=== PATIENT | female | born 1955 | race African-American/Black ===

== ENCOUNTER 2016-11-14 13:02 | Emergency (ER) | payer MEDICARE, OTHER ==
[~2016-11-14] VITALS: Ht 165.1 cm; Wt 148.8 kg
[2016-11-14 13:02] VITALS: BP 126/66
[~2016-11-14 13:02] MED LIST: ACET500T68 PO; ALBU2.5V14 NEB; ALPR0.5T PO; BACL10TA PO; BISA10SU2 RC; CALC625T12 PO; CIPR500T94 PO; CRAN450T3 PO; CYAN10005 PO; CYAN500T17 PO; DOCU-27 PO; ESCI10TA10 PO; FENT1PAT15 TP; FURO-68 PO; GABA-586 PO; IPRA3AMP IH; LACT1CAP PO; LIDO5JEL8 TP; LORA10TA68 PO; MAGN2400 PO; MULT1TAB52 PO; MUPI1OIN NS; OLOP2.5D EACHEYE; OMEP20CA9 PO; ONDA4TAB12 PO; OXYB5TAB7 PO; OXYC-323 PO; OXYC20TA34 PO; OXYM15MI4 NS; POLY15DR27 OP; POLY17PO5 PO; PRAV20TA2 PO; SIME80TA14 PO; SPIR25TA3 PO; SULF1TAB23 PO; TOLT4CAP PO; [UNRECOGNIZED DRUG - CODE] MM
[2016-11-14] MEDS ORDERED: ACETAMINOPHEN 500 MG TABLET PO ONE (14:30)
[2016-11-14 15:39] LABS: BASO # 0.1 x10^3/uL (0.0-0.2); BASO % 1 % (0-3); EOS % 2 % (0-3); HEMATOCRIT 38.1 % (36.0-47.0); HEMOGLOBIN 12.3 g/dL (12.0-15.5); LYMPH # 1.8 x10^3/uL (1.0-4.8); LYMPH % 29 % (24-48); MEAN CORPUSCULAR HEMOGLOBIN 29 pg (25-35); MEAN CORPUSCULAR HGB CONC 32 g/dL (31-37); MEAN CORPUSCULAR VOLUME 89 fL (79-100); MONO % 8 % (0-9); NEUT % 61 % (31-73); PLATELET COUNT 241 x10^3/uL (140-400); RED BLOOD COUNT 4.27 x10^6/uL (3.50-5.40); WHITE BLOOD COUNT 6.3 x10^3/uL (4.0-11.0)
[2016-11-14 15:48] LABS: INR 1.1 (0.8-1.1); PROTHROMBIN TIME PATIENT 13.2 SEC (11.7-14.0)
--- NOTE | 2016-11-14 16:12 | PHYS DOC ---
Past Medical History Past Medical History: CVA, Depression, GERD, High Cholesterol, Hypertension, Other Additional Past Medical Histor: morbid obesity,left hemiparesis Past Surgical History: Alcohol Use: Occasionally Drug Use: None Adult General Chief Complaint Chief Complaint: VAGINAL BLEEDING HPI HPI Patient is a 61 year old female who presents from residential for evaluation of vaginal bleeding that started in the past day. She has had bleeding all day. She notes minimal lower abdominal cramping. She denies dyspnea, fatigue, chest pain, lightheadedness. She denies vaginal trauma, bloody stools, bloody urine, dysuria, back pain. Review of Systems Review of Systems Constitutional: Denies fever or chills [] Eyes: Denies change in visual acuity, redness, or eye pain [] HENT: Denies nasal congestion or sore throat [] Respiratory: Denies cough or shortness of breath [] Cardiovascular: No additional information not addressed in HPI [] GI: Denies abdominal pain, nausea, vomiting, bloody stools or diarrhea [] : Denies dysuria or hematuria [] Musculoskeletal: Denies back pain or joint pain [] Integument: Denies rash or skin lesions [] Neurologic: Denies headache, focal weakness or sensory changes [] Endocrine: Denies polyuria or polydipsia [] Current Medications Current Medications Current Medications Medications (Trade) Dose Ordered Sig/Gabriel Start Time Stop Time Status Last Admin Dose Admin Acetaminophen (Tylenol) 500 mg 1X ONCE 11/14/16 14:30 11/14/16 14:35 DC 11/14/16 14:41 500 MG Allergies Allergies Allergies Coded Allergies Type Severity Reaction Last Updated Verified coconut oil Allergy Severe shortness of breath 02/11/15 Yes Penicillins Allergy Intermediate 02/11/15 Yes I S O L A T I O N *CONTACT* Allergy Unknown 08/19/15 Yes Physical Exam Physical Exam Constitutional: Well developed, well nourished, no acute distress, non-toxic appearance. [] HENT: Normocephalic, atraumatic, bilateral external ears normal, oropharynx moist, nose normal. [] Eyes: PERRLA, EOMI. [] Neck: Normal range of motion, supple. [] Cardiovascular:Heart rate regular rhythm [] Lungs & Thorax: Bilateral breath sounds clear to auscultation [] Abdomen: Bowel sounds normal, soft, no tenderness. No blood per external rectal exam, no fissure, no hemorrhoid [] Genitourinary: Scant bloody discharge externally seen, scant bloody discharge seen in the vaginal vault with manual exam alone, no obvious active bleeding, no obvious source of bleeding. Patient would not tolerate further exam due to limited mobility of legs and large body habitus Skin: Warm, dry, no erythema, no rash. [] Back: No tenderness, no CVA tenderness. [] Extremities: No tenderness, no edema. [] Neurologic: Alert and oriented X 3, normal motor function, normal sensory function, no focal deficits noted. [] Psychologic: Affect normal, judgement normal, mood normal. [] Current Patient Data Vital Signs Vital Signs Date Time Temp Pulse Resp B/P Pulse Ox O2 Delivery O2 Flow Rate FiO2 11/14/16 13:02 98.0 72 20 126/66 2 Nasal Cannula 98.0 Lab Values Laboratory Tests Test 11/14/16 15:20 White Blood Count 6.3x10^3/uL (4.0-11.0) Red Blood Count 4.27x10^6/uL (3.50-5.40) Hemoglobin 12.3g/dL (12.0-15.5) Hematocrit 38.1% (36.0-47.0) Mean Corpuscular Volume 89fL (79-100) Mean Corpuscular Hemoglobin 29pg (25-35) Mean Corpuscular Hemoglobin Concent 32g/dL (31-37) Red Cell Distribution Width 15.0% (11.5-14.5) H Platelet Count 241x10^3/uL (140-400) Neutrophils (%) (Auto) 61% (31-73) Lymphocytes (%) (Auto) 29% (24-48) Monocytes (%) (Auto) 8% (0-9) Eosinophils (%) (Auto) 2% (0-3) Basophils (%) (Auto) 1% (0-3) Neutrophils # (Auto) 3.8x10^3uL (1.8-7.7) Lymphocytes # (Auto) 1.8x10^3/uL (1.0-4.8) Monocytes # (Auto) 0.5x10^3/uL (0.0-1.1) Eosinophils # (Auto) 0.2x10^3/uL (0.0-0.7) Basophils # (Auto) 0.1x10^3/uL (0.0-0.2) Prothrombin Time 13.2SEC (11.7-14.0) Prothrombin Time INR 1.1 (0.8-1.1) Laboratory Tests 11/14/16 15:20 Course & Med Decision Making Course & Med Decision Making Pertinent Labs and Imaging studies reviewed. (See chart for details) Workup is unremarkable. Have concern for postmenopausal vaginal bleeding and recommend follow-up with primary care as well as gynecology. Return precautions given. She understands and agrees with plan. Dragon Disclaimer Dragon Disclaimer This electronic medical record was generated, in whole or in part, using a voice recognition dictation system. Departure Departure Impression: Primary Impression: Postmenopausal bleeding Disposition: HOME, SELF-CARE Condition: STABLE Referrals: CONOR HANSON MD (PCP) Patient Instructions: Postmenopausal Bleeding, [id number] Additional Instructions: Follow-up with gynecology and your primary care doctor for further workup. Return for any concerns. Bárbara ROSA MD Nov 14, 2016 16:12
== END 2016-11-14 17:06 | disposition home or self-care (01) ==
LOC: ER 13:02
DX: N95.0 Postmenopausal bleeding (principal); K21.9 Gastro-esophageal reflux disease without esophagitis; E78.00 Pure hypercholesterolemia, unspecified; I10 Essential (primary) hypertension; Z86.73 Personal history of transient ischemic attack (TIA), and cerebral infarction without residual deficits; Z68.43 Body mass index [BMI] 50.0-59.9, adult; Z88.0 Allergy status to penicillin; Z91.018 Allergy to other foods; E66.01 Morbid (severe) obesity due to excess calories
CPT/HCPCS: 36415; 85027; 85610; 99284

== ENCOUNTER → 2018-05-10 | Day surgery (SDC) | payer MEDICARE, OTHER ==
[~2018-05-10] VITALS: Ht 167.6 cm; Wt 137.0 kg
[~2018-05-10] MED LIST changes: +ALPR0.25 PO; +AMLO10TA4 PO; +ASPI-482 PO; +ATOR10TA60 PO; +BENZ1LOZ48 MM; +DEXAMETHASONE SOD PHOS 20 MG/5 ML VIAL. ONE; +DIPH25CA58 PO; +DOCU-109 PO; -DOCU-27 PO; -ESCI10TA10 PO; +FAMO20TA5 PO; +GUAI600T47 PO; +HYDR28.423 TP; +HYDROmorphone 2 MG/ML VIAL IV PRN; +IOHEXOL 300 MG/ML 100ML VIAL. ONE; -IPRA3AMP IH; +IPRA3AMP29 IH; +IV RINGERS,LACTATED 1000ML 1,000 ML IV SCH; +LACT1TAB6 PO; +LEXAPRO10 MG PO; +LIDOCAINE 1% PF 2 ML VIAL. ID PRN; +LIDOCAINE 2% JELLY 6ML IN APPLICATOR. ONE; +LIDOCAINE 2% PF Vial for OR 5 ML VIAL. ONE; +MIDAZOLAM HCL/PF 2 MG/2 ML VIAL. ONE; +MINE120C TP; +MORPHINE SULFATE 2 MG/ML VIAL. IV PRN; +NITR100C62 PO; +NYST15PO9 TP; +ONDANSETRON PF 4 MG/2 ML VIAL. ONE; +OXYB5TAB PO; +POLY17PO29 PO; -POLY17PO5 PO; +PROCHLORPERAZINE 10 MG/2 ML VIAL. IV PRN; +PROPOFOL 20 ML IV ONE; +RANI75TA95 PO; +SEVOFLURANE 61 TO 120 MINUTES. IH ONE; -SPIR25TA3 PO; +SPIR25TA5 PO; +TRAM50TA PO; +ceFAZolin 2GM PREMIX 2 GM/50 ML BAG IV ONE; +fentaNYL PF VIAL 100 MCG/2 ML VIAL IV PRN; +fentaNYL PF VIAL 100 MCG/2 ML VIAL ONE
--- NOTE | 2018-05-10 14:32 | PDOC ---
BRIEF OPERATIVE NOTE Pre-Op Diagnosis bladder stone recurrent UTI Post-Op Diagnosis same Procedure Performed cystoscopy, evacuation of bladder stone, right retrograde pyelogram, right ureteroscopy, 6fr x 26 cm JJ stent on string placement Surgeon Neelam Harman Stone Sandblaster None Anesthesia Type: General Blood Loss <5 cc Specimens Obtained Urine for culture, bladder stones Findings As dictated Complications None Operative Note Dictation # [id number] NEELAM HARMAN MD May 10, 2018 14:32
--- NOTE | 2018-05-10 14:35 | DISCH ---
DISCHARGE INSTRUCTIONS Condition on Discharge Condition on Discharge: Stable Activity After Discharge Activity Instructions for Disc: Resume previous activity Diet after Discharge Diet after Discharge: Regular Wound Incision Care Other wound/incision instructi: Please remove the ureteral stent taped to your leg on Wednesday morning. Contacting the DRVel after DC Call your doctor for: Fevers, nausea/vomiting, pain, bleeding, difficulty urinating Follow-Up Follow up with: Dr. Harman in 3 weeks NEELAM HARMAN MD May 10, 2018 14:35
--- NOTE | 2018-05-10 14:51 | OP ---
DATE OF SURGERY: 05/10/2018 PREOPERATIVE DIAGNOSES: 1. Recurrent urinary tract infections. 2. Bladder stones. POSTOPERATIVE DIAGNOSES: 1. Recurrent urinary tract infections. 2. Bladder stones. PROCEDURE PERFORMED: 1. Cystourethroscopy. 2. Evacuation of bladder stones. 3. Right retrograde pyelogram. 4. Right ureteroscopy. 5. Right 6-Central African x 26-cm double-J ureteral stent on string placement. ANESTHESIA: General. COMPLICATIONS: None. BLOOD LOSS: Less than 5 mL. INDICATIONS: The patient is a 63-year-old female with multiple comorbidities including COPD and is oxygen dependent. She has a history of nephrolithiasis and recurrent urinary tract infections. Evaluation including a CT scan, which identified a large left renal stone burden as well as a right renal stone burden and multiple bladder stones. Given her comorbidities, she was unable to undergo a percutaneous nephrolithotomy. We did discuss removing her bladder stones in an attempt to help with her recurrent urinary tract infections. A CT scan also noted some possible distal right ureteral stones. She presents today for above-mentioned procedure. DESCRIPTION OF PROCEDURE: The patient was met in the preoperative holding area where her procedure, risks, benefits, alternatives were reviewed in detail. Informed consent was obtained. She was brought back to the operating room and placed supine on the operating table. Timeout was called, identifying the correct patient, procedure, preoperative antibiotics and right-sided laterality. All members of the surgical team were in agreement. General anesthesia was induced and she was repositioned into dorsal lithotomy and prepped and draped in sterile fashion. A 21-Central African rigid cystoscope was placed atraumatically through urethra. A complete cystoscopy was performed with a 30-degree lens and did not identify any abnormalities within the urethra. There were multiple bladder stones of various sizes at the base of the bladder. There were no mucosal lesions or other debris. Her urine had a very foul odor, so a specimen was obtained for culture. The stones were next evacuated with the cystoscope. The ureteral orifices were orthotopic in position. A cone-tipped catheter was placed in the distal right ureter and a retrograde pyelogram was shot and did not identify any filling defects within the distal ureter; however, there was one in the proximal ureter, so we exchanged the catheter for a sensor tip wire, which was fed up to the renal pelvis under fluoroscopic guidance. The bladder was emptied and alongside the wire, a semirigid ureteroscope was placed all the way up into the renal pelvis. No stones or signs of trauma were noted within the ureter. There was some cloudy appearing debris within the renal pelvis that was evacuated with a syringe. On looking the scope out, there were again no trauma or stones noted within the ureter. The cystoscope was replaced. The bladder was reinspected. No trauma was noted. The bladder was emptied and the scope was removed under direct vision. Using fluoroscopic guidance, a 6-Central African x 26-cm double-J ureteral stent on string was placed. Good proximal positioning was noted in the kidney. Distal curl was noted within the bladder. The strings were then tegadermed to her leg and she was awoken and transferred to the PACU in stable condition with plans to remove her stent on Wednesday morning. NEELAM HARMAN MD DR: CHANELL/allyson JOB#: [id number] / [id number]
[2018-05-10] MEDS: fentaNYL PF VIAL 100 MCG/2 ML VIAL IV PRN ×2 (15:21→15:44)
[2018-05-10 15:32] VITALS: BP 147/74
== END | disposition home or self-care (01) ==
LOC: SURG 11:14
PROVIDERS: ATTEND Urology
DX: N21.0 Calculus in bladder (principal); N39.0 Urinary tract infection, site not specified; J44.9 Chronic obstructive pulmonary disease, unspecified; Z99.81 Dependence on supplemental oxygen; Z88.0 Allergy status to penicillin; Z91.048 Other nonmedicinal substance allergy status
CPT/HCPCS: 52332; 74420; 87086; C1713; C1769; C2617; J0690; J1100; J2001; J2250; J2405; J2704; J3010; J7120; Q9967; A7015

== ENCOUNTER 2020-04-09 17:09 | Inpatient (IN) | payer MEDICARE, OTHER ==
[~2020-04-09] VITALS: Ht 165.1 cm; Wt 115.9 kg
[~2020-04-09 17:09] MED LIST changes: -BISA10SU2 RC; +BISA10SU4 RC; +CEFD300C PO; +CITA10TA8 PO; +CYAN-25 PO; -CYAN10005 PO; -DEXAMETHASONE SOD PHOS 20 MG/5 ML VIAL. ONE; +DEXT237L PO; +ERGO500027 PO; -GABA-586 PO; +GABA300C18 PO; +HYDR-3164 PO; -HYDROmorphone 2 MG/ML VIAL IV PRN; +HYOS0.12 PO/SL; -IOHEXOL 300 MG/ML 100ML VIAL. ONE; -IV RINGERS,LACTATED 1000ML 1,000 ML IV SCH; +LACT1CAP2 PO; -LIDOCAINE 1% PF 2 ML VIAL. ID PRN; -LIDOCAINE 2% JELLY 6ML IN APPLICATOR. ONE; -LIDOCAINE 2% PF Vial for OR 5 ML VIAL. ONE; +LORA0.5T96 PO; -MAGN2400 PO; +MAGN24003 PO; +MAGN400O7 PO; -MIDAZOLAM HCL/PF 2 MG/2 ML VIAL. ONE; -MORPHINE SULFATE 2 MG/ML VIAL. IV PRN; +MULT-445 PO; -MULT1TAB52 PO; -OLOP2.5D EACHEYE; +OLOP2.5D12 EACHEYE; +OMEP20CA16 PO; -OMEP20CA9 PO; -ONDANSETRON PF 4 MG/2 ML VIAL. ONE; +OXYB-36 PO; -OXYB5TAB PO; +OXYB5TAB10 PO; -OXYB5TAB7 PO; -OXYC-323 PO; +OXYC1TAB15 PO; +POLY15DR20 OP; -PROCHLORPERAZINE 10 MG/2 ML VIAL. IV PRN; -PROPOFOL 20 ML IV ONE; +RANI-369 PO; -RANI75TA95 PO; -SEVOFLURANE 61 TO 120 MINUTES. IH ONE; +TAMS0.4C97 PO; -ceFAZolin 2GM PREMIX 2 GM/50 ML BAG IV ONE; -fentaNYL PF VIAL 100 MCG/2 ML VIAL IV PRN; -fentaNYL PF VIAL 100 MCG/2 ML VIAL ONE
[2020-04-09 18:32] LABS: BASO # 0.1 x10^3/uL (0.0-0.2); BASO % 1 % (0-3); EOS # 0.6 x10^3/uL (0.0-0.7); EOS % 7 % (0-3); HEMATOCRIT 31.5 % (36.0-47.0); HEMOGLOBIN 10.2 g/dL (12.0-15.5); LYMPH # 2.5 x10^3/uL (1.0-4.8); LYMPH % 28 % (24-48); MEAN CORPUSCULAR HEMOGLOBIN 28 pg (25-35); MEAN CORPUSCULAR HGB CONC 32 g/dL (31-37); MEAN CORPUSCULAR VOLUME 86 fL (79-100); MONO # 0.7 x10^3/uL (0.0-1.1); MONO % 8 % (0-9); NEUT # 5.1 x10^3/uL (1.8-7.7); NEUT % 57 % (31-73); PLATELET COUNT 252 x10^3/uL (140-400); RED BLOOD COUNT 3.68 x10^6/uL (3.50-5.40); RED CELL DISTRIBUTION WIDTH 17.5 % (11.5-14.5); WHITE BLOOD COUNT 8.9 x10^3/uL (4.0-11.0)
[2020-04-09 18:42] LABS: BASE EXCESS ABG 20 mmol/L (-3-3); HCO3 ABG 50 mmol/L (21-28); PO2 ABG 80 mmHg (65-108); SAT O2 ABG 94 % (92-99)
[2020-04-09 18:44] LABS: FIO2 ABG 3L N.C.; PCO2 ABG 94 mmHg (35-46)
--- NOTE | 2020-04-09 19:29 | RAD ---
PORTABLE CHEST 1V History: Reason: SOA 21 / Spl. Instructions: / History: Comparison: CT January 27, 2020. Chest x-ray January 27, 2020 Findings: Large calcified mediastinal masses, unchanged. No consolidation or pleural effusion. Low lung volumes with mild bibasilar linear atelectasis. No pneumothorax. Unchanged heart size. Impression: 1. Low lung volumes with mild bibasilar linear atelectasis. Electronically signed by: Lul Peña DO (04/09/2020 7:26 PM) [facility]
[2020-04-09 19:35] LABS: BLOOD UREA NITROGEN 12 mg/dL (7-20); BUN/CREATININE RATIO 17 (6-20); CALCIUM 10.1 mg/dL (8.5-10.1); CARBON DIOXIDE 43 mmol/L (21-32); CHLORIDE 101 mmol/L (98-107); CREATININE 0.7 mg/dL (0.6-1.0); GFR 101.6; GLUCOSE 100 mg/dL (70-99); POTASSIUM 4.5 mmol/L (3.5-5.1); SODIUM 143 mmol/L (136-145)
[2020-04-09 19:41] LABS: ALBUMIN 2.4 g/dL (3.4-5.0); ALBUMIN/GLOBULIN RATIO 0.5 (1.0-1.7); ALK PHOS 67 U/L (46-116); ALT (SGPT) 10 U/L (14-59); AST (SGOT) 14 U/L (15-37); MAGNESIUM 1.9 mg/dL (1.8-2.4); TOTAL BILIRUBIN 0.2 mg/dL (0.2-1.0); TOTAL PROTEIN 7.2 g/dL (6.4-8.2)
[2020-04-09] MEDS ORDERED: IPRATRPIUM/ALBUTEROL 0.5/2.5MG 3 ML NEBU. NEB ONE (19:45)
[2020-04-09] MEDS ORDERED: methylPREDNISolone SOD SUCC PF 125 MG/2 ML VIAL. IV ONE (19:45)
[2020-04-09] MEDS ORDERED: ONDANSETRON PF 4 MG/2 ML VIAL. IV PRN (19:45)
[2020-04-09] MEDS ORDERED: IPRATRPIUM/ALBUTEROL 0.5/2.5MG 3 ML NEBU. NEB SCH (20:00)
[2020-04-09 21:15] VITALS: BP 152/79
[2020-04-09] MEDS ORDERED: ALBUTEROL SULFATE 2.5 MG/3 ML NEBU. NEB PRN (21:15)
--- NOTE | 2020-04-09 21:15 | NUR ---
Pt admitted to room 112 from ER. Pt oriented to room and educated on POC. Picture taken of wound on buttock, see chart. Pt brought lift sheet from [facility] and states she will need to take it back with her.
[2020-04-09 22:00] VITALS: BP 117/70
[2020-04-09] MEDS ORDERED: MIRT7.5T8 PO (22:28)
[2020-04-09] MEDS ORDERED: GUAI-108 PO (22:28)
[2020-04-09] MEDS ORDERED: DICL100G54 TP (22:28)
[2020-04-09] MEDS ORDERED: BENZ9.352 MM (22:28)
[2020-04-09] MEDS ORDERED: CETI10TA16 PO (22:28)
[2020-04-09] MEDS ORDERED: FLUT16SP NS (22:28)
[2020-04-09] MEDS ORDERED: HYDR-2868 PO (22:28)
[2020-04-09] MEDS ORDERED: SIMETHICONE 80 MG TAB.CHEW PO PRN (22:45)
[2020-04-09] MEDS ORDERED: NON FORMULARY ITEM (Albuterol Sulfate (Albuterol Sulfate Conc Neb Soln) 1 VIAL) NEB PRN (22:45)
[2020-04-09] MEDS ORDERED: ONDANSETRON ODT 4 MG TAB.RAPDIS. PO PRN (22:45)
[2020-04-09] MEDS ORDERED: FLUTICASONE 50MCG/NASAL SPRAY 16GM BOTTLE. NS PRN (22:45)
[2020-04-09] MEDS ORDERED: HYDROCORTISONE 1% TOPICAL CREAM 30GM TUBE. TP PRN (22:45)
[2020-04-09] MEDS ORDERED: diphenhydrAMINE HCL 25 MG CAPSULE PO PRN (22:45)
[2020-04-09] MEDS ORDERED: BISACODYL 10 MG SUPP.RECT. RC PRN (22:45)
[2020-04-09] MEDS ORDERED: HYDROcodone/APAP 5/325MG 1 TAB TABLET PO PRN (22:45)
[2020-04-09] MEDS ORDERED: MAGNESIUM HYDROXIDE 2,400 MG/30 ML ORAL.SUSP. PO PRN (22:45)
[2020-04-09] MEDS ORDERED: HYOSCYAMINE 0.125 MG TAB.RAPDIS PO PRN (22:45)
[2020-04-09] MEDS ORDERED: MINERAL OIL/PETROLATUM TOPICAL CREAM 113GM JAR. TP PRN (22:45)
[2020-04-09] MEDS ORDERED: ACETAMINOPHEN 500 MG TABLET PO PRN (22:45)
[2020-04-09] MEDS ORDERED: BENZOCAINE 10% ORAL GEL 7GM TUBE. MM PRN (22:45)
[2020-04-09] MEDS ORDERED: POLYVINYL ALCOHOL 1.4% OPHTH SOLUTION 15ML BOTTLE. OU PRN (22:45)
[2020-04-09 23:00] VITALS: BP 114/74
[2020-04-09] MEDS ORDERED: FAMOTIDINE 20 MG TABLET. PO PRN (23:00)
[2020-04-09] MEDS: hydrALAZINE 25 MG TABLET PO SCH (23:00)
[2020-04-09] MEDS: BACLOFEN 10 MG TABLET. PO SCH (23:21)
[2020-04-09] MEDS: TAMSULOSIN 0.4 MG CAP.ER.24H. PO SCH (23:21)
[2020-04-09] MEDS: OXYBUTYNIN CHLORIDE 5 MG TABLET PO SCH (23:22)
[2020-04-09] MEDS: MIRTAZAPINE 7.5 MG TABLET. PO SCH (23:22)
--- NOTE | 2020-04-09 23:25 | PHYS DOC ---
Past Medical History Past Medical History: Bipolar, Bronchitis, CAD, GERD, High Cholesterol, Hypertension Additional Past Medical Histor: morbid obesity,left hemiparesis Past Surgical History: , Other Smoking Status: Never Smoker Alcohol Use: None Drug Use: None General Adult EDM: Chief Complaint: SHORTNESS OF BREATH HPI: HPI: Patient is a 64-year-old morbidly obese female with multiple medical problems including COPD. She lives in a nursing facility. Apparently over the course of the last couple of days she has had increased confusion and lethargy. She was sent here today by her primary care physician over concerns that she may have become hypercapnic. She has done this in the past according to Dr. Ramachandran. She has not had any high fevers chills or sweats. She denies any hemoptysis. [] Review of Systems: Review of Systems: Review of systems is unobtainable secondary to altered mental status Heart Score: Risk Factors: Risk Factors: DM, Current or recent (<one month) smoker, HTN, HLP, family history of CAD, obesity. Risk Scores: Score 0 - 3: 2.5% MACE over next 6 weeks - Discharge Home Score 4 - 6: 20.3% MACE over next 6 weeks - Admit for Clinical Observation Score 7 - 10: 72.7% MACE over next 6 weeks - Early Invasive Strategies Allergies: Allergies: Allergies Coded Allergies Type Severity Reaction Last Updated Verified coconut oil Allergy Severe shortness of breath 02/11/15 Yes Penicillins Allergy Intermediate HAS PREVIOUSLY TOLERATED CTX 11/25/17 Yes I S O L A T I O N *CONTACT* Allergy Unknown 03/20/19 Yes Physical Exam: PE: Constitutional: Morbidly obese female who appears acute on chronically ill. [] HENT: Normocephalic, atraumatic, bilateral external ears normal, oropharynx moist, no oral exudates, nose normal. [] Eyes: PERRLA, EOMI, conjunctiva normal, no discharge. [] Neck: Normal range of motion, no tenderness, supple, no stridor. [] Cardiovascular:Heart rate regular rhythm, no murmur [] Lungs & Thorax: Bilateral breath sounds clear to auscultation however diminished throughout [] Abdomen: Morbidly obese bowel sounds normal, soft, no tenderness, no masses, no pulsatile masses. [] Skin: Warm, dry, no erythema, no rash. [] Back: No tenderness, no CVA tenderness. [] Extremities: 2+ edema equal bilaterally [] Neurologic: Alert but confused to place and time, normal motor function, normal sensory function, no focal deficits noted. [] Psychologic: Unable to assess [] Current Patient Data: Labs: Laboratory Tests Test 04/09/20 17:35 04/09/20 18:20 04/09/20 18:55 O2 Saturation 94 % (92-99) Arterial Blood pH 7.34 (7.35-7.45) L Arterial Blood pCO2 at Patient Temp 94 mmHg (35-46) *H Arterial Blood pO2 at Patient Temp 80 mmHg (65-108) Arterial Blood HCO3 50 mmol/L (21-28) H Arterial Blood Base Excess 20 mmol/L (-3-3) H FiO2 3l n.c. White Blood Count 8.9 x10^3/uL (4.0-11.0) Red Blood Count 3.68 x10^6/uL (3.50-5.40) Hemoglobin 10.2 g/dL (12.0-15.5) L Hematocrit 31.5 % (36.0-47.0) L Mean Corpuscular Volume 86 fL (79-100) Mean Corpuscular Hemoglobin 28 pg (25-35) Mean Corpuscular Hemoglobin Concent 32 g/dL (31-37) Red Cell Distribution Width 17.5 % (11.5-14.5) H Platelet Count 252 x10^3/uL (140-400) Neutrophils (%) (Auto) 57 % (31-73) Lymphocytes (%) (Auto) 28 % (24-48) Monocytes (%) (Auto) 8 % (0-9) Eosinophils (%) (Auto) 7 % (0-3) H Basophils (%) (Auto) 1 % (0-3) Neutrophils # (Auto) 5.1 x10^3/uL (1.8-7.7) Lymphocytes # (Auto) 2.5 x10^3/uL (1.0-4.8) Monocytes # (Auto) 0.7 x10^3/uL (0.0-1.1) Eosinophils # (Auto) 0.6 x10^3/uL (0.0-0.7) Basophils # (Auto) 0.1 x10^3/uL (0.0-0.2) Prothrombin Time 13.0 SEC (11.7-14.0) Prothrombin Time INR 1.0 (0.8-1.1) Activated Partial Thromboplast Time 34 SEC (24-38) Sodium Level 143 mmol/L (136-145) Potassium Level 4.5 mmol/L (3.5-5.1) Chloride Level 101 mmol/L (98-107) Carbon Dioxide Level 43 mmol/L (21-32) H Anion Gap (6-14) Blood Urea Nitrogen 12 mg/dL (7-20) Creatinine 0.7 mg/dL (0.6-1.0) Estimated GFR (Cockcroft-Gault) 101.6 BUN/Creatinine Ratio 17 (6-20) Glucose Level 100 mg/dL (70-99) H Calcium Level 10.1 mg/dL (8.5-10.1) Magnesium Level 1.9 mg/dL (1.8-2.4) Total Bilirubin 0.2 mg/dL (0.2-1.0) Aspartate Amino Transferase (AST) 14 U/L (15-37) L Alanine Aminotransferase (ALT) 10 U/L (14-59) L Alkaline Phosphatase 67 U/L (46-116) Troponin I Quantitative < 0.017 ng/mL (0.000-0.055) CJ-Hjc-P-Type Natriuretic Peptide 20 pg/mL (0-124) Total Protein 7.2 g/dL (6.4-8.2) Albumin 2.4 g/dL (3.4-5.0) L Albumin/Globulin Ratio 0.5 (1.0-1.7) L Laboratory Tests 04/09/20 18:20 Laboratory Tests 04/09/20 18:55 Vital Signs: Vital Signs Date Time Temp Pulse Resp B/P (MAP) Pulse Ox O2 Delivery O2 Flow Rate FiO2 04/09/20 20:54 68 13 174/94 (120) 98 BiPAP/CPAP 04/09/20 20:13 3.0 04/09/20 18:30 98.8 98.8 EKG: EKG: [] Radiology/Procedures: Radiology/Procedures: [] Impression: PROCEDURE: PORTABLE CHEST 1V PORTABLE CHEST 1V History: Reason: SOA 21 / Spl. Instructions: / History: Comparison: CT January 27, 2020. Chest x-ray January 27, 2020 Findings: Large calcified mediastinal masses, unchanged. No consolidation or pleural effusion. Low lung volumes with mild bibasilar linear atelectasis. No pneumothorax. Unchanged heart size. Impression: 1. Low lung volumes with mild bibasilar linear atelectasis. Course & Med Decision Making: Course & Med Decision Making Pertinent Labs and Imaging studies reviewed. (See chart for details) [ED course: Valuation reveals a 64-year-old female who was found to be hypercapnic this is likely the cause of her altered mental status. BiPAP was started with assistance of respiratory therapy. She will be placed in the ICU under the care of Dr. Erickson. CRITICAL CARE: Time spent was 35 minutes. This includes medical management, evaluation, reevaluation, discussion with consultants and family. Critical Care does NOT include time spent on separately billed procedures. Dragon Disclaimer: Dragon Disclaimer: This electronic medical record was generated, in whole or in part, using a voice recognition dictation system. Departure Departure Impression: Primary Impression: Acute hypercapnic respiratory failure Disposition: ADMITTED INPATIENT Admitting Physician: Madi. Saravia Condition: GUARDED Referrals: CONOR RAMACHANDRAN MD (PCP) Justicifation of Admission Dx: Justifications for Admission: Justification of Admission Dx: Yes Comments: Acute hypercapnic respiratory failure NEHEMIAH HERNÁNDEZ DO Apr 09, 2020 23:25
[2020-04-10] VITALS (22 sets, daily range): BP systolic 84–170; BP diastolic 47–106
[2020-04-10] MEDS ORDERED: ALBUTEROL SULFATE 2.5 MG/3 ML NEBU. NEB PRN
[2020-04-10 02:08] LABS: BASO # 0.1 x10^3/uL (0.0-0.2); BASO % 1 % (0-3); EOS # 0.4 x10^3/uL (0.0-0.7); EOS % 6 % (0-3); HEMATOCRIT 28.4 % (36.0-47.0); HEMOGLOBIN 9.5 g/dL (12.0-15.5); LYMPH # 2.5 x10^3/uL (1.0-4.8); LYMPH % 30 % (24-48); MEAN CORPUSCULAR HEMOGLOBIN 28 pg (25-35); MEAN CORPUSCULAR HGB CONC 33 g/dL (31-37); MEAN CORPUSCULAR VOLUME 85 fL (79-100); MONO # 0.5 x10^3/uL (0.0-1.1); MONO % 6 % (0-9); NEUT # 4.7 x10^3/uL (1.8-7.7); NEUT % 57 % (31-73); PLATELET COUNT 233 x10^3/uL (140-400); RED BLOOD COUNT 3.33 x10^6/uL (3.50-5.40); RED CELL DISTRIBUTION WIDTH 17.3 % (11.5-14.5); WHITE BLOOD COUNT 8.2 x10^3/uL (4.0-11.0)
[2020-04-10 02:43] LABS: ALBUMIN 2.2 g/dL (3.4-5.0); ALBUMIN/GLOBULIN RATIO 0.5 (1.0-1.7); CALCIUM 9.6 mg/dL (8.5-10.1); CREATININE 0.9 mg/dL (0.6-1.0); POTASSIUM 3.6 mmol/L (3.5-5.1); TOTAL BILIRUBIN 0.2 mg/dL (0.2-1.0); TOTAL PROTEIN 6.6 g/dL (6.4-8.2)
[2020-04-10] MEDS ORDERED: C.DIFF MED SCREEN BY RX. MC ONE (09:00)
[2020-04-10] MEDS: LORazepam 0.5 MG TABLET PO SCH (09:00)
[2020-04-10] MEDS: guaiFENesin DM 600/30MG 1 TAB TAB.ER.12H PO SCH (09:10)
[2020-04-10] MEDS: DOCUSATE SODIUM 100 MG CAPSULE. PO SCH (09:11)
[2020-04-10] MEDS: TAMSULOSIN 0.4 MG CAP.ER.24H. PO SCH ×2 (09:11→21:17)
[2020-04-10] MEDS: MULTIVITAMIN with MINERAL TABLET. PO SCH (09:12)
[2020-04-10] MEDS: CYANOCOBALAMIN (VITAMIN B-12) 1,000 MCG TABLET. PO SCH (09:12)
[2020-04-10] MEDS: OXYBUTYNIN CHLORIDE 5 MG TABLET PO SCH ×3 (09:12→21:17)
[2020-04-10] MEDS: GABAPENTIN 300 MG CAPSULE. PO SCH ×3 (09:12→21:17)
[2020-04-10] MEDS: CITALOPRAM 20 MG TABLET. PO SCH (09:13)
[2020-04-10] MEDS: CETIRIZINE HCL 10 MG TABLET. PO SCH (09:13)
[2020-04-10] MEDS: BACLOFEN 10 MG TABLET. PO SCH ×3 (09:14→21:17)
[2020-04-10] MEDS: POLYETHYLENE GLYCOL 3350 17 GM PACKET. PO SCH (09:14)
[2020-04-10] MEDS: ASPIRIN ENTERIC COATED 81 MG TABLET.DR. PO SCH (09:14)
[2020-04-10] MEDS: hydrALAZINE 25 MG TABLET PO SCH ×3 (09:51→21:17)
[2020-04-10] MEDS: DICLOFENAC SODIUM 1% TOPICAL GEL 100GM TUBE. TP PRN (10:13)
--- NOTE | 2020-04-10 10:44 | CONS ---
DATE OF CONSULTATION: PULMONARY CONSULTATION ATTENDING PHYSICIAN: Dr. Ramachandran. REASON FOR CONSULTATION: Dyspnea, hypercapnia. HISTORY OF PRESENT ILLNESS: The patient is a 64-year-old morbidly obese patient with a BMI of 41. She has COPD, likely from secondhand tobacco exposure. She lives in a nursing facility. She was brought into the hospital with some confusion and lethargy. The patient had some shortness of breath. She had a low-grade fever over there, but she has been afebrile since our hospital. Her chest x-ray was reviewed. She has a large calcified mediastinal mass, which is unchanged. She has no definite consolidation seen. She has mild bibasilar atelectasis. I have been asked to see her for further evaluation. She had abnormal ABGs with a pH of 7.34, pCO2 of 94 and pO2 of 80 on 3 liters nasal cannula. She declined to use the BiPAP last night. She is awake, alert and following commands. She is on still 3 liters of oxygen. I reviewed the patient's CT chest from January of this year. She had a large calcified granuloma in the mediastinum. She had bilateral infiltrates at that time. PAST MEDICAL HISTORY: Significant for COPD from secondhand tobacco exposure, suspected VALERIANO and OHS. History of morbid obesity, bipolar disorder, CAD, GERD, dyslipidemia, hypertension and left hemiparesis. PAST SURGICAL HISTORY: . SOCIAL HISTORY: Denies any significant tobacco use. ALLERGIES: PENICILLIN AND COCONUT OIL. MEDICATIONS: Reviewed as listed in the MRAD including lorazepam. REVIEW OF SYSTEMS: Twelve-point system obtained. Pertinent positives discussed in my history of present illness, otherwise noncontributory. All systems that were negative were reviewed as well. FAMILY HISTORY: Noncontributory to lungs. PHYSICAL EXAMINATION: GENERAL: She is awake, alert and following commands. VITAL SIGNS: Blood pressure stable, pulse ox 98% on 3 liters. HEENT: Sclerae nonicteric. NECK: Supple. LUNGS: With diminished breath sounds. CARDIOVASCULAR: With a regular rate. ABDOMEN: Soft, obese. EXTREMITIES: With no pitting edema. LABORATORY DATA: Reviewed. ABG discussed in my history of present illness. BUN 13, creatinine 0.9. INR 1.0. White cell count 8.2, hemoglobin 9.5 and platelets are 233. IMPRESSION: 1. Ocfey-vj-tfgsdea hypercapnic respiratory failure secondary to chronic obstructive pulmonary disease exacerbation and also contributed by benzodiazepines/ Narcotics. 2. Suspected obstructive sleep apnea/obesity hypoventilation syndrome. 3. Chronic hypercapnia. 4. Chronic hypoxia. The patient has been on oxygen at 3 liters on a 24-hour basis. We need to avoid hyperoxia. 5. Previous abnormal CT chest and x-rays with large calcified mediastinal granuloma. 6. Tracheobronchitis. RECOMMENDATIONS: 1. We will reduce the oxygen down to 1.5 liters, keep saturation 92-94%. 2. Follow ABGs. 3. BiPAP at bedtime if she agrees to use it. 4. Consider sleep study as an outpatient, although she has marginal compliance with BiPAP. 5. Weight loss is advised. 6. Minimize the use of benzodiazepines./narcotics 7. P.r.n. bronchodilators. 8. Discussed with RN and we will follow along with you. Critical care time 35 minutes including review of the labs, previous imaging studies and discussion with RN and RT and decision making. ISHAN GAYTAN MD DR: PATRICE/allyson JOB#: [id number] / [id number] NICOLAS
--- NOTE | 2020-04-10 12:13 | HP ---
ADMIT DATE: 04/09/2020 HISTORY OF PRESENT ILLNESS: The patient is a 64-year-old female patient, a resident at [facility], who was noted by the nursing staff to be increasingly confused and lethargic. We did her lab work showed that her bicarbonate is elevated at 45 and were concerned that she might be retaining carbon dioxide that she has been admitted before with acute hypercapnic respiratory failure and therefore, the patient was sent to the Emergency Room where she was evaluated and eventually admitted with acute hypoxic hypercapnic respiratory failure. The patient denied any fever, chills, sweats. Did complain of cough and shortness of breath, but denied any phlegm or hemoptysis. While in the Emergency Room, she has had lab work, which showed a white cell count was normal. Her blood gases showed a pH of 7.34, pCO2 of 94, pO2 of 80, bicarbonate of 50 and her oxygen saturation was 94% on 3 liters of oxygen by nasal cannula. Her chest x-ray showed low lung volumes with mild bibasilar linear atelectasis. The patient was admitted to the ICU and was put on BiPAP machine. All her medications were continued. She did receive one dose of Solu-Medrol at 125 mg IV once in the Emergency Room, she is afebrile, hemodynamically stable. Chest x-ray was unremarkable and therefore, no antibiotics were initiated. Her carbon dioxide retention is likely related to her morbid obesity, obstructive sleep apnea. She is also on multiple medications that are sedating including hydrocodone, diphenhydramine as well as lorazepam. PAST MEDICAL HISTORY: Significant for right middle cerebral artery territory infarct, left side hemiplegia, neurogenic bladder requiring suprapubic catheter, has chronic obstructive pulmonary disease for which she is on continuous oxygen at 2.5 liters by nasal cannula. She is known to have hypertension, hyperlipidemia, depression, morbid obesity, and obstructive sleep apnea. She has an overactive bladder, severe pain in her left knee joint, gastroesophageal reflux disease, recurrent urinary tract infection. She is also known to have bladder stones for which she underwent cystoscopy and stone retrieval. PAST SURGICAL HISTORY: Significant for cholecystostomy tube placement for acute cholecystitis. She also underwent cystourethroscopy and evacuation of bladder stones, right retrograde pyelography, right ureteroscopy and right ureteral stent placement. FAMILY HISTORY: Unremarkable. SOCIAL HISTORY: She is a resident at [facility]. She does not smoke, drink alcohol or use recreational drugs. She has a son and a daughter. ALLERGIES: SHE IS ALLERGIC TO PENICILLIN AND COCONUT OIL. MEDICATIONS: She is currently on following medications: She is on diphenhydramine 50 mg every 4 hours as needed, cetirizine 10 mg once a day, hyoscyamine sulfate 0.125 mg p.o. sublingually every 4 hours for overactive bladder spasm, albuterol sulfate 2.5 mg by nebulizer every 6 hours, tamsulosin for Flomax 0.4 mg twice a day, baclofen 10 mg 3 times a day, atorvastatin calcium 10 mg at bedtime, hydralazine 25 mg 3 times a day, aspirin 81 mg once a day, diclofenac sodium 100 grams gel 2 grams apply topically every 4 hours for her shoulders as needed for pain. She is on hydrocodone/APAP 5/325 one tablet every 4 hours, Tylenol 500 mg every 6 hours. She is on gabapentin 300 mg 3 times a day, citalopram hydrobromide for Celexa 20 mg once a day, mirtazapine 7.5 mg daily at bedtime, lorazepam 0.5 mg once a day. She is on guaifenesin/dextromethorphan for Mucinex DM 600 mg/30 mg 1 tablet once a day, Flonase 2 sprays to each nostril once a day, benzocaine oral pain relief as needed. She is on polyvinyl alcohol 1 drop to both eyes 3 times a day, simethicone 160 mg every 6 hours, bisacodyl 10 mg suppository rectally daily p.r.n. for constipation, Colace 100 mg once a day, milk of magnesia 30 mL p.o. daily p.r.n. for constipation. She is on polyethylene glycol 17 grams daily, and ondansetron 4 mg every 4 hours, famotidine 20 mg once a day, hydrocortisone/aloe vera apply 4 times a day as needed for skin rash. She is also on Eucerin cream for dry skin as needed 3 times a day, oxybutynin chloride 5 mg 3 times a day. She is on cyanocobalamin 500 mcg tablet once a day and ergocalciferol for vitamin D2 50,000 units once a week, multivitamin 1 tablet once a day. PHYSICAL EXAMINATION: GENERAL: On arrival to the Emergency Room, the patient was lethargic, somewhat pale, but no jaundice, cyanosis or thyromegaly. No jugular venous distention. No limb edema. VITAL SIGNS: Her heart rate was 68, blood pressure was 140/64, temperature was 98.8, respiratory rate was 14 and oxygen saturation was 97% on 3 liters of oxygen. HEAD, EYES, EARS, NOSE AND THROAT: Normocephalic, atraumatic. NECK: Supple. HEART: Normal first and second heart sounds. No gallop, rub or murmur. CHEST: Clear to auscultation. No crepitation or rhonchi. ABDOMEN: Distended, soft, nontender. No guarding or rigidity. No organomegaly. All hernial orifice intact. Bowel sounds normal. NEUROLOGIC: The patient is alert, but confused to place and time. There is a left-sided hemiplegia. LABORATORY DATA: Her lab work on arrival showed a white cell count of 8900, hemoglobin 10, hematocrit 31, MCV 86, and platelet count 252,000. Her chemistry showed a serum sodium 143, potassium 4.5, chloride 101, bicarbonate 43, anion gap of 0, BUN 12, creatinine 0.7, estimated GFR was 101, glucose was 100, calcium was 10.1, magnesium was 1.9. Total bilirubin, AST, ALT, alkaline phosphatase were normal. Total protein 7.2, albumin 2.4. Her prothrombin time, INR and aPTT are all normal. Her blood gases showed a pH of 7.34, pCO2 of 94, pO2 of 80, bicarbonate 50 and her oxygen saturation was 94% on 3 liters oxygen by nasal cannula. Her chest x-ray showed that large calcified mediastinal mass is unchanged. There is no consolidation, pleural effusion, low lung volumes and mild bibasilar linear atelectasis, no pneumothorax, unchanged heart size. Therefore, the patient was admitted with acute hypoxic hypercapnic respiratory failure. She was started on BiPAP. She has a normal white cell count. She is afebrile and ____ for hypercapnia is likely part of her morbid obesity, obstructive sleep apnea. She is also on multiple sedating medications including lorazepam. She is on gabapentin, diphenhydramine as well as hydrocodone. She probably hold some of these medications for now and we have already consulted the etcher enameling to assist with her management. CONOR HANSON MD DR: KASI/allyson JOB#: [id number] / [id number]
--- NOTE | 2020-04-10 12:47 | PN ---
DATE: 04/10/2020 SUBJECTIVE: The patient is resting, slightly propped up in bed, in no apparent respiratory distress. She is definitely more awake, alert and responding appropriately. On questioning her, she continued to complain of shortness of breath and cough, is mostly dry. She denied any chest pain, denied any chills, rigors, or fever. Denied any phlegm or hemoptysis. PHYSICAL EXAMINATION: GENERAL: When I examined her this morning, she looked well, somewhat pale, but no jaundice, cyanosis or thyromegaly. No jugular venous distention or limb edema. VITAL SIGNS: Her heart rate was 68, blood pressure was 131/106, temperature was 98.5, respiratory rate was 18 and oxygen saturation was 97% on 1.5 liters of oxygen by nasal cannula. HEAD, EYES, EARS, NOSE AND THROAT: Showed she is normocephalic and atraumatic. NECK: Supple. HEART: Normal first and second heart sounds. No gallop, rub or murmur. CHEST: Shows central trachea, equal bilateral expansion, air entry expands. I could not really appreciate any crepitation or rhonchi. ABDOMEN: Distended, soft, nontender. NEUROLOGIC: She is awake, alert, responding appropriately. All cranial nerves intact. She has obviously dense left-sided hemiplegia. She is mostly bedbound, chair bound. She has neurogenic bladder requiring suprapubic catheter. LABORATORY DATA: Her lab work this morning showed a white cell count was 8200, hemoglobin 9.5, hematocrit 28, MCV 85 and platelet count 233,000. Her chemistry this morning showed a serum sodium of 45, potassium 3.6, chloride 102, bicarbonate 43, anion gap of 0, BUN 13, creatinine 0.9, estimated GFR was 76 mL per minute. Her glucose was 130, calcium was 9.6. Total bilirubin, AST, ALT, alkaline phosphatase were normal. Her total protein was 6.6, albumin was 2.2. She has 3 sets of cardiac enzymes, all negative and showed troponin to be less than 0.017. Beta natriuretic peptide was only 20. ASSESSMENT: In summary, this is a 64-year-old female patient who was admitted with acute hypercapnic respiratory failure, likely multifactorial including: A. Morbid obesity, obstructive sleep apnea. B. Multiple sedatives including hydrocodone, lorazepam, and Neurontin. She is also on diphenhydramine and Mucinex with dextromethorphan. She has multiple other medical problems including: A. Hypertension. B. Hyperlipidemia. C. Right middle cerebral artery territory infarct with left-sided hemiplegia, neurogenic bladder requiring suprapubic catheter overactive bladder, nephrolithiasis, and urinary bladder calculi. I would probably hold some of her pain medications and we will also arrange for her to have a sleep study but obviously to be done as an outpatient. CONOR HANSON MD DR: KASI/allyson JOB#: [id number] / [id number]
[2020-04-10 13:17] LABS: BASE EXCESS ABG 16 mmol/L (-3-3); HCO3 ABG 43 mmol/L (21-28); PO2 ABG 77 mmHg (65-108); SAT O2 ABG 95 % (92-99)
[2020-04-10 13:19] LABS: PCO2 ABG 64 mmHg (35-46)
--- NOTE | 2020-04-10 15:08 | NUR ---
SS following for discharge planning. SS reviewed pt chart and discussed with pt RN. Pt is LTC resident from [place], ; fax [phone]. Pt is currently requiring oxygen. COVID19 pending. SS will continue to follow for discharge planning.
[2020-04-10] MEDS ORDERED: ATORVASTATIN CALCIUM 10 MG TABLET. PO SCH (21:00)
[2020-04-10] MEDS: MIRTAZAPINE 7.5 MG TABLET. PO SCH (21:17)
[2020-04-11] VITALS (14 sets, daily range): BP systolic 84–140; BP diastolic 50–104
[2020-04-11 08:16] LABS: BASO # 0.1 x10^3/uL (0.0-0.2); BASO % 1 % (0-3); EOS # 0.4 x10^3/uL (0.0-0.7); EOS % 5 % (0-3); HEMATOCRIT 32.1 % (36.0-47.0); HEMOGLOBIN 10.5 g/dL (12.0-15.5); LYMPH # 3.2 x10^3/uL (1.0-4.8); LYMPH % 37 % (24-48); MEAN CORPUSCULAR HEMOGLOBIN 28 pg (25-35); MEAN CORPUSCULAR HGB CONC 33 g/dL (31-37); MEAN CORPUSCULAR VOLUME 85 fL (79-100); MONO # 0.6 x10^3/uL (0.0-1.1); MONO % 7 % (0-9); NEUT # 4.3 x10^3/uL (1.8-7.7); NEUT % 50 % (31-73); PLATELET COUNT 267 x10^3/uL (140-400); RED BLOOD COUNT 3.78 x10^6/uL (3.50-5.40); RED CELL DISTRIBUTION WIDTH 17.9 % (11.5-14.5); WHITE BLOOD COUNT 8.6 x10^3/uL (4.0-11.0)
[2020-04-11 08:29] LABS: BLOOD UREA NITROGEN 16 mg/dL (7-20); BUN/CREATININE RATIO 20 (6-20); CALCIUM 9.9 mg/dL (8.5-10.1); CARBON DIOXIDE 42 mmol/L (21-32); CHLORIDE 103 mmol/L (98-107); CREATININE 0.8 mg/dL (0.6-1.0); GFR 87.1; GLUCOSE 92 mg/dL (70-99); POTASSIUM 3.7 mmol/L (3.5-5.1); SODIUM 142 mmol/L (136-145)
[2020-04-11 08:35] LABS: ALBUMIN 2.4 g/dL (3.4-5.0); ALBUMIN/GLOBULIN RATIO 0.5 (1.0-1.7); ALK PHOS 64 U/L (46-116); ALT (SGPT) 10 U/L (14-59); AST (SGOT) 14 U/L (15-37); TOTAL BILIRUBIN 0.3 mg/dL (0.2-1.0); TOTAL PROTEIN 7.1 g/dL (6.4-8.2)
[2020-04-11] MEDS: LORazepam 0.5 MG TABLET PO SCH (08:40)
[2020-04-11] MEDS: DOCUSATE SODIUM 100 MG CAPSULE. PO SCH (08:40)
[2020-04-11] MEDS: CITALOPRAM 20 MG TABLET. PO SCH (08:40)
[2020-04-11] MEDS: hydrALAZINE 25 MG TABLET PO SCH (08:40)
[2020-04-11] MEDS: ASPIRIN ENTERIC COATED 81 MG TABLET.DR. PO SCH (08:40)
[2020-04-11] MEDS: TAMSULOSIN 0.4 MG CAP.ER.24H. PO SCH (08:41)
[2020-04-11] MEDS: GABAPENTIN 300 MG CAPSULE. PO SCH (08:41)
[2020-04-11] MEDS: POLYETHYLENE GLYCOL 3350 17 GM PACKET. PO SCH (08:41)
[2020-04-11] MEDS: OXYBUTYNIN CHLORIDE 5 MG TABLET PO SCH (08:41)
[2020-04-11] MEDS: guaiFENesin DM 600/30MG 1 TAB TAB.ER.12H PO SCH (08:41)
[2020-04-11] MEDS: MULTIVITAMIN with MINERAL TABLET. PO SCH (08:41)
[2020-04-11] MEDS: BACLOFEN 10 MG TABLET. PO SCH (08:41)
[2020-04-11] MEDS: CYANOCOBALAMIN (VITAMIN B-12) 1,000 MCG TABLET. PO SCH (08:41)
[2020-04-11] MEDS: CETIRIZINE HCL 10 MG TABLET. PO SCH (08:42)
--- NOTE | 2020-04-11 09:54 | NUR ---
SS following up with discharge planning. SS reviewed pt chart and discussed with pt RN. Pt is LTC resident from [place], ; fax [phone]. Pt is currently on nasal canula oxygen. COVID19 negative. SS phoned and faxed clinical to [place]. Possible discharge back to [place] today. SS will continue to follow for discharge planning.
--- NOTE | 2020-04-11 10:00 | EKG ---
[facility] [address] [place] [address] Test Date: 2020-04-09 Test Time: 17:52:13 Pat Name: PASHA SIMMONS Department: Room: Gender: F Greige Mender: : 1955 Requested By: FAZAL GRACE Order Number: [id number] Reading MD: Measurements Intervals [place] Rate: 72 P: 48 MA: 132 QRS: 8 QRSD: 100 T: 62 QT: 360 QTc: 396 Interpretive Statements SINUS RHYTHM NORMAL ECG RI6.01 No previous ECG available for comparison
--- NOTE | 2020-04-11 10:06 | PDOC ---
PULMONARY PROGRESS NOTES Subjective Pt. wore and tolerated BIPAP overnight, now on room air no overnight concerns, no SOB, no increase cough Vitals Vital Signs Date Time Temp Pulse Resp B/P (MAP) Pulse Ox O2 Delivery O2 Flow Rate FiO2 04/11/20 09:00 103 29 140/104 (116) 93 Room Air 04/11/20 08:00 98.1 1.5 98.1 ROS: No Nausea, No Chest Pain, No Abdominal Pain, No Increase Cough General: Alert, No acute distress HEENT: Other Lungs: Clear Cardiovascular: S1, S2 Abdomen: Soft, Non-tender Extremities: Other Labs Laboratory Tests Test 04/09/20 17:35 04/09/20 18:20 04/09/20 18:55 04/09/20 20:15 O2 Saturation 94 % (92-99) Arterial Blood pH 7.34 (7.35-7.45) Arterial Blood pCO2 at Patient Temp 94 mmHg (35-46) Arterial Blood pO2 at Patient Temp 80 mmHg (65-108) Arterial Blood HCO3 50 mmol/L (21-28) Arterial Blood Base Excess 20 mmol/L (-3-3) FiO2 3l n.c. White Blood Count 8.9 x10^3/uL (4.0-11.0) Red Blood Count 3.68 x10^6/uL (3.50-5.40) Hemoglobin 10.2 g/dL (12.0-15.5) Hematocrit 31.5 % (36.0-47.0) Mean Corpuscular Volume 86 fL (79-100) Mean Corpuscular Hemoglobin 28 pg (25-35) Mean Corpuscular Hemoglobin Concent 32 g/dL (31-37) Red Cell Distribution Width 17.5 % (11.5-14.5) Platelet Count 252 x10^3/uL (140-400) Neutrophils (%) (Auto) 57 % (31-73) Lymphocytes (%) (Auto) 28 % (24-48) Monocytes (%) (Auto) 8 % (0-9) Eosinophils (%) (Auto) 7 % (0-3) Basophils (%) (Auto) 1 % (0-3) Neutrophils # (Auto) 5.1 x10^3/uL (1.8-7.7) Lymphocytes # (Auto) 2.5 x10^3/uL (1.0-4.8) Monocytes # (Auto) 0.7 x10^3/uL (0.0-1.1) Eosinophils # (Auto) 0.6 x10^3/uL (0.0-0.7) Basophils # (Auto) 0.1 x10^3/uL (0.0-0.2) Prothrombin Time 13.0 SEC (11.7-14.0) Prothromb Time International Ratio 1.0 (0.8-1.1) Activated Partial Thromboplast Time 34 SEC (24-38) Sodium Level 143 mmol/L (136-145) Potassium Level 4.5 mmol/L (3.5-5.1) Chloride Level 101 mmol/L (98-107) Carbon Dioxide Level 43 mmol/L (21-32) Anion Gap (6-14) Blood Urea Nitrogen 12 mg/dL (7-20) Creatinine 0.7 mg/dL (0.6-1.0) Estimated GFR (Cockcroft-Gault) 101.6 BUN/Creatinine Ratio 17 (6-20) Glucose Level 100 mg/dL (70-99) Calcium Level 10.1 mg/dL (8.5-10.1) Magnesium Level 1.9 mg/dL (1.8-2.4) Total Bilirubin 0.2 mg/dL (0.2-1.0) Aspartate Amino Transf (AST/SGOT) 14 U/L (15-37) Alanine Aminotransferase (ALT/SGPT) 10 U/L (14-59) Alkaline Phosphatase 67 U/L (46-116) Troponin I Quantitative < 0.017 ng/mL (0.000-0.055) BQ-Pwb-K-Type Natriuretic Peptide 20 pg/mL (0-124) Total Protein 7.2 g/dL (6.4-8.2) Albumin 2.4 g/dL (3.4-5.0) Albumin/Globulin Ratio 0.5 (1.0-1.7) Coronavirus (PCR) Not detected (Not Detected) Test 04/09/20 22:50 04/10/20 01:55 04/10/20 13:10 04/11/20 08:00 Troponin I Quantitative < 0.017 ng/mL (0.000-0.055) < 0.017 ng/mL (0.000-0.055) White Blood Count 8.2 x10^3/uL (4.0-11.0) 8.6 x10^3/uL (4.0-11.0) Red Blood Count 3.33 x10^6/uL (3.50-5.40) 3.78 x10^6/uL (3.50-5.40) Hemoglobin 9.5 g/dL (12.0-15.5) 10.5 g/dL (12.0-15.5) Hematocrit 28.4 % (36.0-47.0) 32.1 % (36.0-47.0) Mean Corpuscular Volume 85 fL (79-100) 85 fL (79-100) Mean Corpuscular Hemoglobin 28 pg (25-35) 28 pg (25-35) Mean Corpuscular Hemoglobin Concent 33 g/dL (31-37) 33 g/dL (31-37) Red Cell Distribution Width 17.3 % (11.5-14.5) 17.9 % (11.5-14.5) Platelet Count 233 x10^3/uL (140-400) 267 x10^3/uL (140-400) Neutrophils (%) (Auto) 57 % (31-73) 50 % (31-73) Lymphocytes (%) (Auto) 30 % (24-48) 37 % (24-48) Monocytes (%) (Auto) 6 % (0-9) 7 % (0-9) Eosinophils (%) (Auto) 6 % (0-3) 5 % (0-3) Basophils (%) (Auto) 1 % (0-3) 1 % (0-3) Neutrophils # (Auto) 4.7 x10^3/uL (1.8-7.7) 4.3 x10^3/uL (1.8-7.7) Lymphocytes # (Auto) 2.5 x10^3/uL (1.0-4.8) 3.2 x10^3/uL (1.0-4.8) Monocytes # (Auto) 0.5 x10^3/uL (0.0-1.1) 0.6 x10^3/uL (0.0-1.1) Eosinophils # (Auto) 0.4 x10^3/uL (0.0-0.7) 0.4 x10^3/uL (0.0-0.7) Basophils # (Auto) 0.1 x10^3/uL (0.0-0.2) 0.1 x10^3/uL (0.0-0.2) Sodium Level 145 mmol/L (136-145) 142 mmol/L (136-145) Potassium Level 3.6 mmol/L (3.5-5.1) 3.7 mmol/L (3.5-5.1) Chloride Level 102 mmol/L (98-107) 103 mmol/L (98-107) Carbon Dioxide Level 43 mmol/L (21-32) 42 mmol/L (21-32) Anion Gap 0 (6-14) (6-14) Blood Urea Nitrogen 13 mg/dL (7-20) 16 mg/dL (7-20) Creatinine 0.9 mg/dL (0.6-1.0) 0.8 mg/dL (0.6-1.0) Estimated GFR (Cockcroft-Gault) 76.0 87.1 BUN/Creatinine Ratio 14 (6-20) 20 (6-20) Glucose Level 130 mg/dL (70-99) 92 mg/dL (70-99) Calcium Level 9.6 mg/dL (8.5-10.1) 9.9 mg/dL (8.5-10.1) Total Bilirubin 0.2 mg/dL (0.2-1.0) 0.3 mg/dL (0.2-1.0) Aspartate Amino Transf (AST/SGOT) 12 U/L (15-37) 14 U/L (15-37) Alanine Aminotransferase (ALT/SGPT) 11 U/L (14-59) 10 U/L (14-59) Alkaline Phosphatase 63 U/L (46-116) 64 U/L (46-116) Total Protein 6.6 g/dL (6.4-8.2) 7.1 g/dL (6.4-8.2) Albumin 2.2 g/dL (3.4-5.0) 2.4 g/dL (3.4-5.0) Albumin/Globulin Ratio 0.5 (1.0-1.7) 0.5 (1.0-1.7) O2 Saturation 95 % (92-99) Arterial Blood pH 7.45 (7.35-7.45) Arterial Blood pCO2 at Patient Temp 64 mmHg (35-46) Arterial Blood pO2 at Patient Temp 77 mmHg (65-108) Arterial Blood HCO3 43 mmol/L (21-28) Arterial Blood Base Excess 16 mmol/L (-3-3) FiO2 2 lpm nc Magnesium Level 2.0 mg/dL (1.8-2.4) Laboratory Tests Test 04/10/20 13:10 04/11/20 08:00 O2 Saturation 95 % (92-99) Arterial Blood pH 7.45 (7.35-7.45) Arterial Blood pCO2 at Patient Temp 64 mmHg (35-46) Arterial Blood pO2 at Patient Temp 77 mmHg (65-108) Arterial Blood HCO3 43 mmol/L (21-28) Arterial Blood Base Excess 16 mmol/L (-3-3) FiO2 2 lpm nc White Blood Count 8.6 x10^3/uL (4.0-11.0) Red Blood Count 3.78 x10^6/uL (3.50-5.40) Hemoglobin 10.5 g/dL (12.0-15.5) Hematocrit 32.1 % (36.0-47.0) Mean Corpuscular Volume 85 fL (79-100) Mean Corpuscular Hemoglobin 28 pg (25-35) Mean Corpuscular Hemoglobin Concent 33 g/dL (31-37) Red Cell Distribution Width 17.9 % (11.5-14.5) Platelet Count 267 x10^3/uL (140-400) Neutrophils (%) (Auto) 50 % (31-73) Lymphocytes (%) (Auto) 37 % (24-48) Monocytes (%) (Auto) 7 % (0-9) Eosinophils (%) (Auto) 5 % (0-3) Basophils (%) (Auto) 1 % (0-3) Neutrophils # (Auto) 4.3 x10^3/uL (1.8-7.7) Lymphocytes # (Auto) 3.2 x10^3/uL (1.0-4.8) Monocytes # (Auto) 0.6 x10^3/uL (0.0-1.1) Eosinophils # (Auto) 0.4 x10^3/uL (0.0-0.7) Basophils # (Auto) 0.1 x10^3/uL (0.0-0.2) Sodium Level 142 mmol/L (136-145) Potassium Level 3.7 mmol/L (3.5-5.1) Chloride Level 103 mmol/L (98-107) Carbon Dioxide Level 42 mmol/L (21-32) Anion Gap (6-14) Blood Urea Nitrogen 16 mg/dL (7-20) Creatinine 0.8 mg/dL (0.6-1.0) Estimated GFR (Cockcroft-Gault) 87.1 BUN/Creatinine Ratio 20 (6-20) Glucose Level 92 mg/dL (70-99) Calcium Level 9.9 mg/dL (8.5-10.1) Magnesium Level 2.0 mg/dL (1.8-2.4) Total Bilirubin 0.3 mg/dL (0.2-1.0) Aspartate Amino Transf (AST/SGOT) 14 U/L (15-37) Alanine Aminotransferase (ALT/SGPT) 10 U/L (14-59) Alkaline Phosphatase 64 U/L (46-116) Total Protein 7.1 g/dL (6.4-8.2) Albumin 2.4 g/dL (3.4-5.0) Albumin/Globulin Ratio 0.5 (1.0-1.7) Medications Active Scripts Medications Dose Route/Sig Max Daily Dose Days Date Category Dose Instructions Mucinex Dm Er 600-30 Mg Tablet (Guaifenesin/Dextromethorphan) 1 Each Tab.er.12h 1 Each PO DAILY 04/09/20 Reported Mirtazapine 7.5 Mg Tablet 1 Tab PO QHS 30 04/09/20 Reported Hydralazine Hcl 25 Mg Tablet 1 Tab PO TID 04/09/20 Reported Fluticasone Propionate Nasal [place] (Fluticasone Propionate) 16 Gm [place].susp 2 [place] NS DAILY PRN 04/09/20 Reported Voltaren (Diclofenac Sodium) 100 Gm Gel..gram. 2 Gm TP PRN Q4HRS PRN 30 04/09/20 Reported apply to shoulders as needed for pain Oral Pain Relief (Benzocaine) 9.35 Gm Gel..gram. 9.35 Gm MM PRN PRN 04/09/20 Reported Apply to broken tooth Cetirizine Hcl 10 Mg Tablet 1 Tab PO DAILY 04/09/20 Reported Baclofen 10 Mg Tablet 1 Tab PO TID 07/28/19 Reported Anaspaz (Hyoscyamine Sulfate) 0.125 Mg Tab.rapdis 0.125 Mg PO/SL PRN Q4HRS PRN 03/14/19 Reported Ativan (Lorazepam) 0.5 Mg Tablet 0.5 Mg PO DAILY 03/14/19 Reported Flomax (Tamsulosin Hcl) 0.4 Mg Cap.er.24h 1 Cap PO BID 03/14/19 Reported Polyvinyl Alcohol 15 Ml Drops 15 Ml OP PRN TID PRN 03/14/19 Reported Vitamin D2 (Ergocalciferol (Vitamin D2)) 50,000 Unit Capsule 1 Cap PO WEEKLY 03/14/19 Reported Celexa (Citalopram Hydrobromide) 10 Mg Tablet 2 Tab PO DAILY 03/14/19 Reported Milk Of Magnesia (Magnesium Hydroxide) 400 Mg/5 Ml Oral.susp 400 Mg PO PRN DAILY PRN 03/14/19 Reported [place] 5-325 Tablet (Acetaminophen/Hydrocodone Bitart) 1 Each Tablet 1 Tab PO PRN Q4HRS PRN 03/14/19 Reported Famotidine 20 Mg Tablet 20 Mg PO PRN DAILY PRN 11/25/17 Reported Eucerin Creme (Mineral Oil/White Petrolatum) 120 Gm Cream..g. 1 Raymond TP PRN TID PRN 02/23/17 Reported Hydrocortisone Plus 1% Cream (Hydrocortisone/Aloe Vera) 28.4 Gm Cream..g. 28.4 Gm TP PRN QID PRN 02/23/17 Reported Benadryl (Diphenhydramine Hcl) 25 Mg Capsule 50 Mg PO PRN Q4HRS PRN 02/23/17 Reported Aspir 81 (Aspirin) 81 Mg Tablet.dr 1 Tab PO DAILY 02/23/17 Reported Atorvastatin Calcium 10 Mg Tablet 10 Mg PO HS 02/23/17 Reported Oxybutynin Chloride 5 Mg Tablet 5 Mg PO TID 09/07/15 Reported Ondansetron Odt (Ondansetron) 4 Mg Tab.rapdis 4 Mg PO Q4HRS PRN 08/16/15 Reported Acetaminophen 500 Mg Tablet 500 Mg PO Q6HRS PRN 08/16/15 Reported Multivitamins (Multivitamin) 1 Each Tablet 1 Tab PO DAILY 08/16/15 Reported Bisacodyl 10 Mg Supp.rect 10 Mg RC PRN DAILY PRN 08/16/15 Reported B-12 (Cyanocobalamin (Vitamin B-12)) 500 Mcg Tablet 500 Mcg PO DAILY 08/16/15 Reported Miralax (Polyethylene Glycol 3350) 17 Gm Powd.pack 1 Packet PO DAILY 02/11/15 Reported Albuterol Sulfate Conc Neb Soln (Albuterol Sulfate) 2.5 Mg/0.5 Ml Vial.neb 1 Vial NEB Q6HRS PRN 02/11/15 Reported Colace (Docusate Sodium) 100 Mg Capsule 100 Mg PO DAILY 02/11/15 Reported Simethicone 80 Mg Tab.chew 160 Mg PO Q6HRS PRN 02/11/15 Reported Gabapentin (Gabapentin) 300 Mg Capsule 300 Mg PO TID 02/11/15 Reported Impression . IMPRESSION: 1. Amvbi-[id number]-isoghjp hypercapnic respiratory failure secondary to chronic obstructive pulmonary disease exacerbation and also contributed by benzodiazepines/ Narcotics. 2. Suspected obstructive sleep apnea/obesity hypoventilation syndrome. 3. Chronic hypercapnia. 4. Chronic hypoxia. The patient has been on oxygen at 3 liters on a 24-hour basis. We need to avoid hyperoxia. 5. Previous abnormal CT chest and x-rays with large calcified mediastinal granuloma. 6. Tracheobronchitis. Plan . RECOMMENDATIONS: continue room air during day BIPAP at night PT/OT Consider sleep study as an outpatient, Weight loss is advised. Minimize the use of benzodiazepines./narcotics P.r.n. bronchodilators. COVID (-) Discussed with RN and RT may transfer out of ICU if ok with other consults ISHAN GAYTAN MD Apr 11, 2020 10:06
[2020-04-11] MEDS: DICLOFENAC SODIUM 1% TOPICAL GEL 100GM TUBE. TP PRN (10:17)
--- NOTE | 2020-04-11 11:00 | SNU/HH DC ---
DISCHARGE ORDERS DISCHARGE INFORMATION: DISCHARGE DATE: Apr 11, 2020 FINAL DIAGNOSIS Problems Medical Problems: (1) Acute hypercapnic respiratory failure Status: Acute CONDITION ON DISCHARGE: Stable CODE STATUS: Code Status: Full USP: SNF STAY <30 DAYS: Yes POST DISCHARGE ORDERS: ACTIVITY ORDERS: Resume previous activity, Activity as tolerated DIET AFTER DISCHARGE: Regular TREATMENT/EQUIPMENT ORDERS: ADAPTIVE EQUIPMENT NEEDED: None RESPIRATORY EQUIPMENT NEEDED: Oxygen Physical Therapy For: Evalulation/Treatment Occupational Therapy For: Evaluation/Treatment DISCHARGE MEDICATIONS: Home Meds Reported Medications Mirtazapine (MIRTAZAPINE) 7.5 Mg Tablet, 1 TAB PO QHS for depressive disorders for 30 Days, #30 TAB 0 Refills 04/09/20 Hydralazine Hcl (HYDRALAZINE HCL) 25 Mg Tablet, 1 TAB PO TID for hypertension, #90 TAB 5 Refills 04/09/20 Fluticasone Propionate (FLUTICASONE PROPIONATE NASAL SPRAY) 16 Gm Bighorn.susp, 2 SPRAY NS DAILY PRN for ALLERGIES, #1 INHALER 5 Refills 04/09/20 Diclofenac Sodium (VOLTAREN) 100 Gm Gel..gram., 2 GM TP PRN Q4HRS PRN for PAIN for 30 Days, #100 GM 0 Refills apply to shoulders as needed for pain 04/09/20 Benzocaine (Oral Pain Relief) 9.35 Gm Gel..gram., 9.35 GM MM PRN PRN for PAIN, EACH Apply to broken tooth 04/09/20 Cetirizine Hcl (CETIRIZINE HCL) 10 Mg Tablet, 1 TAB PO DAILY for allergies/itching, #30 TAB 2 Refills 04/09/20 Hyoscyamine Sulfate (ANASPAZ) 0.125 Mg Tab.rapdis, 0.125 MG PO/SL PRN Q4HRS PRN for BLADDER SPASM, TAB 03/14/19 Tamsulosin Hcl (FLOMAX) 0.4 Mg Cap.er.24h, 1 CAP PO BID for , #30 CAP 11 Refills 03/14/19 Polyvinyl Alcohol (POLYVINYL ALCOHOL) 15 Ml Drops, 15 ML OP PRN TID PRN for DRY EYE, DROP 03/14/19 Ergocalciferol (Vitamin D2) (VITAMIN D2) 50,000 Unit Capsule, 1 CAP PO WEEKLY for , #4 CAP 5 Refills 03/14/19 Citalopram Hydrobromide (CELEXA) 10 Mg Tablet, 2 TAB PO DAILY for depression, #30 TAB 2 Refills 03/14/19 Magnesium Hydroxide (MILK OF MAGNESIA) 400 Mg/5 Ml Oral.susp, 400 MG PO PRN DAILY PRN for CONSTIPATION, MISC 03/14/19 Famotidine (FAMOTIDINE) 20 Mg Tablet, 20 MG PO PRN DAILY PRN for , TAB 11/25/17 Mineral Oil/Petrolatum,White (EUCERIN CREME ) 120 Gm Cream..g., 1 BLAS TP PRN TID PRN for DRY SKIN / SCALING, #1 TUBE 02/23/17 Hydrocortisone/Aloe Vera (HYDROCORTISONE PLUS 1% CREAM) 28.4 Gm Cream..g., 28.4 GM TP PRN QID PRN for RASH, EACH 02/23/17 Aspirin (ASPIR 81) 81 Mg Tablet.dr, 1 TAB PO DAILY, TAB 02/23/17 Atorvastatin Calcium (ATORVASTATIN CALCIUM) 10 Mg Tablet, 10 MG PO HS for , TAB 02/23/17 Oxybutynin Chloride (OXYBUTYNIN CHLORIDE) 5 Mg Tablet, 5 MG PO TID, TAB 09/07/15 Ondansetron (ONDANSETRON ODT) 4 Mg Tab.rapdis, 4 MG PO Q4HRS PRN for NAUSEA/VOMITING, TAB 08/16/15 Acetaminophen (ACETAMINOPHEN) 500 Mg Tablet, 500 MG PO Q6HRS PRN for MILD PAIN / TEMP 08/16/15 Multivitamin (MULTIVITAMINS) 1 Each Tablet, 1 TAB PO DAILY, #30 TAB 2 Refills 08/16/15 Bisacodyl (BISACODYL) 10 Mg Supp.rect, 10 MG RC PRN DAILY PRN for CONSTIPATION, SUPP.RECT 0 Refills 08/16/15 Cyanocobalamin (Vitamin B-12) (B-12) 500 Mcg Tablet, 500 MCG PO DAILY 08/16/15 Polyethylene Glycol 3350 (MIRALAX) 17 Gm Powd.pack, 1 PACKET PO DAILY, #30 PACKET 3 Refills 02/11/15 Albuterol Sulfate (ALBUTEROL SULFATE CONC NEB SOLN) 2.5 Mg/0.5 Ml Vial.neb, 1 VIAL NEB Q6HRS PRN for SHORTNESS OF BREATH, #120 VIAL 5 Refills 02/11/15 Docusate Sodium (COLACE) 100 Mg Capsule, 100 MG PO DAILY 02/11/15 Simethicone (SIMETHICONE) 80 Mg Tab.chew, 160 MG PO Q6HRS PRN for GAS / BLOATING, TAB.CHEW 02/11/15 Gabapentin (GABAPENTIN ) 300 Mg Capsule, 300 MG PO TID, #90 CAP 5 Refills 02/11/15 Discontinued Reported Medications Guaifenesin/Dextromethorphan (MUCINEX DM ER 600-30 MG TABLET) 1 Each Tab.er.12h, 1 EACH PO DAILY for allergies, TAB.SR 04/09/20 Baclofen (BACLOFEN) 10 Mg Tablet, 1 TAB PO TID for Relax muscles, #90 TAB 2 Refills 07/28/19 Lorazepam (ATIVAN) 0.5 Mg Tablet, 0.5 MG PO DAILY for , TAB 03/14/19 Hydrocodone/Apap 5-325 (NORCO 5-325 TABLET) 1 Each Tablet, 1 TAB PO PRN Q4HRS PRN for PAIN, #90 TAB 03/14/19 Diphenhydramine Hcl (BENADRYL) 25 Mg Capsule, 50 MG PO PRN Q4HRS PRN for ITCHING, CAP 02/23/17 CONOR HANSON MD Apr 11, 2020 11:00
--- NOTE | 2020-04-11 11:34 | DS ---
DATE OF DISCHARGE: 04/11/2020 HOSPITAL COURSE: The patient is a 64-year-old female patient, resident at [facility], who was admitted with altered mental status and was found to be in acute hypoxic hypercapnic respiratory failure for which she was admitted to ICU and was started on BiPAP machine. I transpired that she was in a huge amount of medications that are sedating including hydrocodone, lorazepam, diphenhydramine and baclofen, and I had a lengthy discussion with her and she agreed to discontinue all these medications, and she did actually very well. When I saw her this morning, she was awake, alert. She is off the BiPAP. She is on 1.5 liters of oxygen, maintaining her oxygen saturation at 91%; and therefore, a decision was made to discharge her back to [facility] with a plan to discontinue all these narcotic and sedating medications and to arrange for her to have an outpatient sleep study as she probably has an element of obstructive sleep apnea due to her morbid obesity. PHYSICAL EXAMINATION: GENERAL: When I saw her this morning, she looked pale. No jaundice, cyanosis or thyromegaly. No jugular venous distention. No lower limb edema. VITAL SIGNS: Her heart rate was 99, blood pressure was 136/97, temperature 98.1, respiratory rate was 30 and oxygen saturation was 91% on room air. HEAD, EYES, EARS, NOSE AND THROAT: Showed normocephalic, atraumatic. NECK: Supple. HEART: Showed normal first and second heart sounds. No gallop or murmur. CHEST: Clear to auscultation. No crepitation or rhonchi. ABDOMEN: Distended, soft, nontender. No guarding or rigidity. No organomegaly. All hernial orifices intact. Bowel sounds normal. NEUROLOGICAL: She was awake, alert, responding appropriately. All cranial nerves intact. She has left-sided hemiplegia. She is mostly bedbound, chair bound. Her intake over the last 24 hours was incompletely recorded. LABORATORY DATA: Her lab work as of yesterday: Her blood gases as of yesterday showed a pH of 7.45, pCO2 of 64, pO2 of 77, bicarbonate of 43 and oxygen saturation was 95% on 2 liters of oxygen. Her blood count was 8600, hemoglobin 10.5, hematocrit 32, MCV 85 and platelet count 267,000. Her chemistry showed a serum sodium of 142, potassium 3.7, chloride 103, bicarbonate 42, her anion gap was 0, BUN is 16, creatinine 0.8, estimated GFR was 87 mL per minute, her glucose was 92, calcium was 9.9, magnesium was 2. Total bilirubin, AST, ALT and alkaline phosphatase were normal. Total protein 7.1. Albumin was 3.4. Her prothrombin time, INR and APTT were within normal range. Coronavirus by PCR was not detected. DISCHARGE MEDICATIONS: She was discharged to continue on all her other medications except I have discontinued her baclofen, diphenhydramine, guaifenesin, dextromethorphan, hydrocodone and lorazepam as they were probably contributing to her sedation and carbon dioxide retention. FINAL DISCHARGE DIAGNOSES: 1. [id number] hypoxic hypercapnic respiratory failure, likely multifactorial including: A. Morbid obesity, obstructive sleep hernia. B. Multiple sedating medications including hydrocodone, lorazepam, baclofen, diphenhydramine, Mucinex, dextromethorphan, which were all discontinued. 2. The patient has multiple other medical problems including: A. Hypertension. B. Hyperlipidemia. C. Right middle cerebral artery territory infarct, left-sided hemiplegia. D. Neurogenic bladder, requiring suprapubic catheter. E. Overactive bladder. F. Nephrolithiasis and urinary bladder calculi. CONOR HANSON MD DR: KASI/allyson JOB#: [id number] / [id number]
--- NOTE | 2020-04-11 12:09 | NUR ---
SS following up with discharge planning. Discharge orders received for return to [place], ; fax [phone]. SS phoned and faxed discharge orders to [place]. Pt will discharge today and return to [place] at 1345 via [facility] transport, . Pt, pt's RN, and pt's daughter notified.
--- NOTE | 2020-04-11 12:26 | NUR ---
Pharmacy Medication Review S: Consulted for medication review re: C.diff Risk Assessment score of 7 O: PASHA SIMMONS is a 64 year old with: Previous C.diff infection: >1yr ago Previous hospitalization: No Recent antibiotics: Within 30 days Use of gastric acid suppressor: Yes Transfer from NH/[facility]AC: Yes Current antibiotic regimen: Current acid suppression regimen: A: Patient has been identified as having risk factors for C.diff infection as noted above. P: Antibiotic Regimen recommendation made: NA (patient not currently on antibiotics) Probiotic ordered: NA (patient not currently on antibiotics) PPI changed to [id number]: No active order for PPI at this time. Home medication famotidine. MARYJANE MATHUR [facility], 04/11/20 [id number]
--- NOTE | 2020-04-11 14:24 | NUR ---
Discharge Note: PASHA SIMMONS M1 [place] ICU Discharge instructions and discharge home medications reviewed with Other facility and a copy given. All questions have been answered and understanding verbalized. The following instructions and handouts were given: med rec and telephone report given to Facility nurse Discontinued lines and drains: PIV dc'd; suprapubic catheter left intact. Patient discharged to [place] with [facility] via [facility]
[2020-04-16] MEDS ORDERED: ERGOCALCIFEROL (VITAMIN D2) 50,000 UNIT CAPSULE. PO SCH (09:00)
== END 2020-04-11 14:28 | DRG 189 ==
LOC: ER 17:09 → 1 WEST ICU 19:42
PROVIDERS: ADMIT Internal Medicine; ATTEND Internal Medicine
PROC: 5A09357 Assistance with Respiratory Ventilation, Less than 24 Consecutive Hours, Continuous Positive Airway Pressure (ICD-10-PCS; principal; 2020-04-09)
PROC: 5A09357 Assistance with Respiratory Ventilation, Less than 24 Consecutive Hours, Continuous Positive Airway Pressure (ICD-10-PCS; 2020-04-10)
PROC: 5A09357 Assistance with Respiratory Ventilation, Less than 24 Consecutive Hours, Continuous Positive Airway Pressure (ICD-10-PCS; 2020-04-11)
DX: J96.21 Acute and chronic respiratory failure with hypoxia (principal); G93.41 Metabolic encephalopathy; Z68.41 Body mass index [BMI] 40.0-44.9, adult; E87.2 Acidosis; J44.1 Chronic obstructive pulmonary disease with (acute) exacerbation; J98.11 Atelectasis; I69.354 Hemiplegia and hemiparesis following cerebral infarction affecting left non-dominant side; Z20.828 Contact with and (suspected) exposure to other viral communicable diseases; E66.01 Morbid (severe) obesity due to excess calories; E78.00 Pure hypercholesterolemia, unspecified; E78.5 Hyperlipidemia, unspecified; F31.9 Bipolar disorder, unspecified; G47.33 Obstructive sleep apnea (adult) (pediatric); I10 Essential (primary) hypertension; I25.10 Atherosclerotic heart disease of native coronary artery without angina pectoris; J96.22 Acute and chronic respiratory failure with hypercapnia; N20.0 Calculus of kidney; N21.0 Calculus in bladder; N31.9 Neuromuscular dysfunction of bladder, unspecified; N32.81 Overactive bladder; K21.9 Gastro-esophageal reflux disease without esophagitis; Z87.440 Personal history of urinary (tract) infections; Z99.81 Dependence on supplemental oxygen; Z88.0 Allergy status to penicillin; Z88.8 Allergy status to other drugs, medicaments and biological substances
CPT/HCPCS: 36415; 36600; 71045; 80053; 82805; 83735; 83880; 84484; 85025; 85610; 85730; 93005; 94660; 96374; 99291; J2930; G0378; U0003-CS

== ENCOUNTER → 2020-10-10 | Outpatient (CLI) | payer MEDICARE, OTHER ==
[2020-07-29 11:41] VITALS: BP 118/61
[~2020-10-10] MED LIST changes: +ASCO500C PO; +BENZ9.352 MM; +CETI10TA16 PO; +DICL100G54 TP; +FLUT16SP NS; +GUAI-108 PO; +GUAI5SYR PO; +HYDR-2868 PO; +METH1TAB54 PO; +MINE454C9 TP; +MIRT7.5T8 PO; +PETR113O TP
--- NOTE | 2020-10-10 14:43 | RAD ---
EXAMINATION: US BREAST RT CLINICAL HISTORY: Fluid-dense mass right lateral breast on outside CT abdomen/pelvis TECHNIQUE: Targeted sonographic images obtained of the lateral right breast. COMPARISON: None FINDINGS: At 10:00 position 8 cm from the nipple, there is a 1.8 x 1.9 x 1.6 cm oval hypoechoic mass with parti ally circumscribed margins demonstrating increased through transmission and no internal vascularity. This could represent a complicated cyst. 2 adjacent oval circumscribed hypoechoic masses 9 cm from the nipple, measuring 12 x 14 x 8 mm and 8 x 7 x 5 mm. These could represent a small complicated cysts or fibrocystic changes. Of note, the patient was also scheduled for a mammogram today but this could not be performed due to inability to adequately position the patient given constraints of the mammography suite dimensions an d patient's wheelchair. IMPRESSION: Probably benign 1.9 cm mass right breast 10:00 position 8 cm from the nipple. BI-RADS ASSESSMENT: Category 3: Probably Benign RECOMMENDATION: Recommend follow-up targeted right breast ultrasound in 6 months. PQRS compliance statement - Patient information was entered into a reminder system with a target due date for the next mammogram. "Our facility is accredited by the [employer] Mammography Program." Electronically signed by: Luis Ramos DO (10/10/2020 2:41 PM) [id number]
== END ==
LOC: MAMMO 13:14
PROVIDERS: ATTEND Internal Medicine
DX: R92.8 Other abnormal and inconclusive findings on diagnostic imaging of breast (principal); N63.11 Unspecified lump in the right breast, upper outer quadrant
CPT/HCPCS: 76641

== ENCOUNTER → 2021-09-16 | Outpatient (CLI) | payer MEDICARE, OTHER ==
[2020-07-29 11:41] VITALS: BP 118/61
--- NOTE | 2021-09-16 09:48 | RAD ---
EXAMINATION: Ultrasound guide assisted right breast biopsy. INDICATION: Reason: RT BREAST MASS / Spl. Instructions: / History: CONSENT: Consent was obtained after the explanation of risks, benefits, and alternatives and placed i n the chart. Timeout was performed. PROCEDURE DETAILS: The patient was placed in the seated position. Ultrasound was used to localize the hypoechoic lesion at the 10 o'clock position in the right breast. The breast was prepped with Chlora Prep and draped in a sterile manner. The skin was anesthetized with lidocaine. The deep tissues were anesthetized with lidocaine/epinephrine and with bupivacaine. A small incision was made in the skin and a 14G biopsy needle was inserted using ultrasound guidance. The needle was removed and a S-jeremiah c lip was then placed in the biopsy cavity under ultrasound guidance. The specimens were placed in a pr e-filled container with Pen-Fix, and the tissue was sent to the pathology department for histologic e valuation. Hemostasis was obtained using manual pressure. Steri-strips were used to close the incision, a gauze dressing was placed. Written instructions were reviewed with the patient, and a copy provided for her reference. Patient did not wish to have a postbiopsy mammogram due to pain. IMPRESSION: Successful US guided breast biopsy. Electronically signed by: Hunter Xavier DO (09/16/2021 9:46 AM) [id number]
== END | disposition home or self-care (01) ==
LOC: US 08:53
PROVIDERS: ATTEND Internal Medicine
DX: N63.11 Unspecified lump in the right breast, upper outer quadrant (principal); I10 Essential (primary) hypertension; E78.00 Pure hypercholesterolemia, unspecified; J44.9 Chronic obstructive pulmonary disease, unspecified; E66.9 Obesity, unspecified; G47.30 Sleep apnea, unspecified; K21.9 Gastro-esophageal reflux disease without esophagitis; M19.90 Unspecified osteoarthritis, unspecified site; F41.9 Anxiety disorder, unspecified; F32.9 Major depressive disorder, single episode, unspecified; Z79.82 Long term (current) use of aspirin; Z79.899 Other long term (current) drug therapy; Z98.890 Other specified postprocedural states; Z88.0 Allergy status to penicillin; Z88.8 Allergy status to other drugs, medicaments and biological substances
CPT/HCPCS: 19083; A4648; C1819

== ENCOUNTER 2021-11-06 10:13 | Observation (INO) | payer MEDICARE, OTHER ==
[~2021-11-06] VITALS: Ht 162.6 cm; Wt 120.0 kg
[~2021-11-06 10:13] MED LIST changes: +ACETAMINOPHEN 500 MG TABLET PO PRN; +FERR325T14 PO; +HYDROmorphone 2 MG/ML INJ. IVP PRN; +IV RINGERS,LACTATED 1000ML 1,000 ML IV SCH; +MORPHINE SULFATE 2 MG/ML INJ. IVP PRN; +POTA15TA9 PO; +PROCHLORPERAZINE 10 MG/2 ML VIAL. IVP PRN; +fentaNYL PF VIAL 100 MCG/2 ML VIAL IVP PRN
[2021-11-06] MEDS ORDERED: LIDOCAINE 2% PF 5 ML VIAL. ONE (10:40)
[2021-11-06] MEDS ORDERED: DEXAMETHASONE SOD PHOS 4 MG/ML VIAL ONE (10:40)
[2021-11-06] MEDS ORDERED: KETOROLAC 30 MG/ML VIAL. ONE (10:40)
[2021-11-06] MEDS ORDERED: ONDANSETRON PF 4 MG/2 ML VIAL. ONE (10:40)
[2021-11-06] MEDS ORDERED: PROPOFOL 10 MG/ML (20ML) VIAL. IV ONE (10:40)
[2021-11-06] MEDS ORDERED: FAMOTIDINE 20 MG/2 ML VIAL ONE (10:40)
[2021-11-06] MEDS ORDERED: HYDROmorphone 2 MG/ML INJ. ONE (10:41)
[2021-11-06 11:05] LABS: BASO # 0.1 x10^3/uL (0.0-0.2); BASO % 1 % (0-3); EOS # 0.3 x10^3/uL (0.0-0.7); EOS % 3 % (0-3); HEMATOCRIT 36.9 % (36.0-47.0); HEMOGLOBIN 11.8 g/dL (12.0-15.5); LYMPH # 1.9 x10^3/uL (1.0-4.8); LYMPH % 21 % (24-48); MEAN CORPUSCULAR HEMOGLOBIN 27 pg (25-35); MEAN CORPUSCULAR HGB CONC 32 g/dL (31-37); MEAN CORPUSCULAR VOLUME 85 fL (79-100); MONO # 0.5 x10^3/uL (0.0-1.1); MONO % 6 % (0-9); NEUT # 6.7 x10^3/uL (1.8-7.7); NEUT % 70 % (31-73); PLATELET COUNT 304 x10^3/uL (140-400); RED BLOOD COUNT 4.37 x10^6/uL (3.50-5.40); RED CELL DISTRIBUTION WIDTH 16.4 % (11.5-14.5); WHITE BLOOD COUNT 9.5 x10^3/uL (4.0-11.0)
[2021-11-06 11:13] LABS: CALCIUM 9.1 mg/dL (8.5-10.1); CREATININE 0.8 mg/dL (0.6-1.0); GFR 86.6; POTASSIUM 4.3 mmol/L (3.5-5.1)
--- NOTE | 2021-11-06 11:28 | PDOC1 ---
History and Physical Date of Admission Date of Admission DATE: 11/06/21 TIME: 11:24 Identification/Chief Complaint Chief Complaint Right breast cancer Source Source: Chart review, Patient History of Present Illness History of Present Illness 66-year-old female who had a biopsy of the right breast mass which showed invasive ductal carcinoma. Long discussion with the patient she wishes to have a mastectomy of note she is morbidly obese wheelchair-bound secondary to CVA Past Medical History Cardiovascular: HTN, Hyperlipidemia Pulmonary: COPD, Other CENTRAL NERVOUS SYSTEM: CVA GI: GERD Heme/Onc: No pertinent hx Hepatobiliary: Other Psych: Anxiety, Depression Musculoskeletal: Osteoarthritis Infectious disease: No pertinent hx Renal/: UTI, Urinary Incontinence Endocrine: No pertinent hx Past Surgical History Past Surgical History: Family History Family History: No Significant, Diabetes, Heart Disease, Hypertension Social History ALCOHOL: none Drugs: None Current Medications Current Medications Current Medications Fentanyl Citrate (Fentanyl 2ml Vial) 25 mcg PRN Q5MIN PRN IVP MILD PAIN 1-3; Start 11/06/21 at 06:00; Stop 11/07/21 at 05:59 Fentanyl Citrate (Fentanyl 2ml Vial) 50 mcg PRN Q5MIN PRN IVP MODERATE PAIN 4- 6; Start 11/06/21 at 06:00; Stop 11/07/21 at 05:59 Morphine Sulfate (Morphine Sulfate) 1 mg PRN Q10MIN PRN IVP SEVERE PAIN 7-10; Start 11/06/21 at 06:00; Stop 11/07/21 at 05:59 Ringer's Solution 1,000 ml @ 30 mls/hr Q24H IV Last administered on 11/06/21at 11:21; Start 11/06/21 at 06:00; Stop 11/06/21 at 17:59 Hydromorphone HCl (Dilaudid) 0.5 mg PRN Q10MIN PRN IVP SEVERE PAIN 7-10, 2nd CHOICE; Start 11/06/21 at 06:00; Stop 11/07/21 at 05:59 Prochlorperazine Edisylate (Compazine) 5 mg PACU PRN PRN IVP NAUSEA, MRX1; Start 11/06/21 at 06:00; Stop 11/07/21 at 05:59 Acetaminophen (Tylenol) 1,000 mg 1X PREOP PRN PO PRIOR TO PROCEDURE Last administered on 11/06/21at 11:21; Start 11/06/21 at 07:00 Levofloxacin/ Dextrose 100 ml @ 100 mls/hr 1X PREOP PRN IV PRIOR TO PROCEDURE; Start 11/06/21 at 06:00; Stop 11/06/21 at 18:00 Propofol (Diprivan) 200 mg STK-MED ONCE IV ; Start 11/06/21 at 10:40; Stop 11/06/21 at 10:40; Status DC Lidocaine HCl (Lidocaine Pf 2% Vial) 5 ml STK-MED ONCE .ROUTE ; Start 11/06/21 at 10:40; Stop 11/06/21 at 10:40; Status DC Ketorolac Tromethamine (Toradol 30mg Vial) 30 mg STK-MED ONCE .ROUTE ; Start 11/06/21 at 10:40; Stop 11/06/21 at 10:40; Status DC Ondansetron HCl (Zofran) 4 mg STK-MED ONCE .ROUTE ; Start 11/06/21 at 10:40; Stop 11/06/21 at 10:40; Status DC Famotidine (Pepcid Vial) 20 mg STK-MED ONCE .ROUTE ; Start 11/06/21 at 10:40; Stop 11/06/21 at 10:41; Status DC Dexamethasone Sodium Phosphate (Decadron) 4 mg STK-MED ONCE .ROUTE ; Start 11/06/21 at 10:40; Stop 11/06/21 at 10:41; Status DC Hydromorphone HCl (Dilaudid) 2 mg STK-MED ONCE .ROUTE ; Start 11/06/21 at 10:41; Stop 11/06/21 at 10:42; Status DC Active Scripts Active Reported Tramadol Hcl 50 Mg Tablet 50 Mg PO Q6HRS PRN Potassium Citrate Er (Potassium Citrate) 15 Meq Tablet.er 20 Meq PO DAILY Ferrous Sulfate 325 Mg Tablet 325 Mg PO BID Vitamin A & D Ointment (Petrolatum,White/Lanolin) 113 Gm Oint...g. 113 Gm TP DAILY Guaifenesin Dm Syrup (Guaifenesin/Dextromethorphan) 5 Ml Syrup 10 Ml PO PRN Q4HRS PRN Hiprex (Methenamine Hippurate) 1 Gm Tablet 1 Tab PO DAILY 30 Days Hydralazine Hcl 25 Mg Tablet 1 Tab PO TID Fluticasone Propionate Nasal Thompson (Fluticasone Propionate) 16 Gm Thompson.susp 2 Thompson NS DAILY PRN Voltaren (Diclofenac Sodium) 100 Gm Gel..gram. 2 Gm TP PRN Q4HRS PRN 30 Days apply to shoulders as needed for pain Cetirizine Hcl 10 Mg Tablet 1 Tab PO DAILY Anaspaz (Hyoscyamine Sulfate) 0.125 Mg Tab.rapdis 0.125 Mg PO/SL PRN Q4HRS PRN Flomax (Tamsulosin Hcl) 0.4 Mg Cap.er.24h 1 Cap PO BID Polyvinyl Alcohol 15 Ml Drops 15 Ml OP PRN TID PRN Celexa (Citalopram Hydrobromide) 10 Mg Tablet 2 Tab PO DAILY Milk Of Magnesia (Magnesium Hydroxide) 400 Mg/5 Ml Oral.susp 400 Mg PO PRN DAILY PRN Famotidine 20 Mg Tablet 20 Mg PO PRN DAILY PRN Hydrocortisone Plus 1% Cream (Hydrocortisone/Aloe Vera) 28.4 Gm Cream..g. 28.4 Gm TP PRN QID PRN Aspir 81 (Aspirin) 81 Mg Tablet.dr 1 Tab PO DAILY Atorvastatin Calcium 10 Mg Tablet 10 Mg PO HS Oxybutynin Chloride 5 Mg Tablet 5 Mg PO TID Acetaminophen 500 Mg Tablet 500 Mg PO Q6HRS PRN Multivitamins (Multivitamin) 1 Each Tablet 1 Tab PO DAILY Bisacodyl 10 Mg Supp.rect 10 Mg RC PRN DAILY PRN B-12 (Cyanocobalamin (Vitamin B-12)) 500 Mcg Tablet 500 Mcg PO DAILY Miralax (Polyethylene Glycol 3350) 17 Gm Powd.pack 1 Packet PO DAILY Simethicone 80 Mg Tab.chew 160 Mg PO Q6HRS PRN Gabapentin (Gabapentin) 300 Mg Capsule 300 Mg PO TID Allergies Allergies: Coded Allergies: coconut oil (Verified Allergy, Severe, shortness of breath, 11/06/21) Penicillins (Verified Allergy, Intermediate, HAS PREVIOUSLY TOLERATED CTX, 11/06/21) I S O L A T I O N *CONTACT* (Verified Allergy, Unknown, ESBL, 11/06/21) ROS General: YES: Fatigue PSYCHOLOGICAL ROS: No: Anxiety, Behavioral Disorder, Concentration difficultie, Decreased libido, Depression, Disorientation, Hallucinations, Hostility, Irritablity, Memory difficulties, Mood Swings, Obsessive thoughts, Physical ab use, Sexual abuse, Sleep disturbances, Suicidal ideation, Other Eyes: No Blurry vision, No Decreased vision, No Double vision, No Dry eyes, No Excessive tearing, No Eye Pain, No Itchy Eyes, No Loss of vision, No Photophobia, No Scotomata, No Uses contacts, No Uses glasses, No Other HEENT: No: Heacaches, Visual Changes, Hearing change, Nasal congestion, Nasal discharge, Oral lesions, Sinus pain, Sore Throat, Epistaxis, Sneezing, Snoring, Tinnitus, Vertigo, Vocal changes, Other ALLERGY AND IMMUNOLOGY: No: Hives, Insect Bite Sensitivity, Itchy/Watery Eyes, Nasal Congestion, Post Nasal Drip, Seasonal Allergies, Other Hematological and Lymphatic: No: Bleeding Problems, Blood Clots, Blood Transfusions, Brusing, Night Sweats, Pallor, Swollen Lymph Nodes, Other ENDOCRINE: No: Breast Changes, Galactorrhea, Hair Pattern Changes, Hot Flashes, Malaise/lethargy, Mood Swings, Palpitations, Polydipsia/polyuria, Skin Changes, Temperature Intolerance, Unexpected Weight Changes, Other Breast: Other (Right breast pain) Respiratory: No: Cough, Hemoptysis, Orthopnea, Pleuritic Pain, Shortness of breath, SOB with excertion, Sputum Changes, Stridor, Tachypnea, Wheezing, Other Cardiovascular: No Chest Pain, No Palpitations, No Orthopnea, No Paroxysmal Noc. Dyspnea, No Edema, No Lt Headedness, No Other Gastrointestinal: No Nausea, No Vomiting, No Abdominal Pain, No Diarrhea, No Constipation, No Melena, No Hematochezia, No Other Genitourinary: No Dysuria, No Frequency, No Incontinence, No Hematuria, No Retention, No Discharge, No Urgency, No Pain, No Flank Pain, No Other, No , No , No , No , No , No , No Musculoskeletal: No Gait Disturbance, No Joint Pain, No Joint Stiffness, No Joint Swelling, No Muscle Pain, No Muscular Weakness, No Pain In:, No Swelling In:, No Other Neurological: No Behavorial Changes, No Bowel/Bladder ControlChng, No Confusion, No Dizziness, No Gait Disturbance, No Headaches, No Impaired Coord/balance, No Memory Loss, No Numbness/Tingling, No Seizures, No Speech Problems, No Tremors, No Visual Changes, No Weakness, No Other Skin: No Dry Skin, No Eczema, No Hair Changes, No Lumps, No Mole Changes, No Mottling, No Nail Changes, No Pruritus, No Rash, No Skin Lesion Changes, No Other, No Acne Physical Exam General: Alert, Oriented X3, Cooperative, No acute distress, Other (Morbidly obese) HEENT: Atraumatic, PERRLA, EOMI Lungs: Clear to auscultation, Normal air movement Heart: RRR, no murmurs Breasts: Abnormal mass palpable (Right breast) Abdomen: Normal bowel sounds, Soft, No tenderness Rectal Exam: not examined PELVIC: Examination not indicated Extremities: Other (Bilateral pedal edema 1+) Skin: No significant lesion Neuro: Normal speech Psych/Mental Status: Mental status NL Vitals Vitals Vital Signs Date Time Temp Pulse Resp B/P (MAP) Pulse Ox O2 Delivery O2 Flow Rate FiO2 11/06/21 11:10 98.0 88 20 115/57 95 Nasal Cannula 3 98.0 Labs Labs Laboratory Tests Test 11/06/21 10:30 11/06/21 11:00 POC SARS CoV-2 Antigen Negative (NEGATIVE) White Blood Count 9.5 x10^3/uL (4.0-11.0) Red Blood Count 4.37 x10^6/uL (3.50-5.40) Hemoglobin 11.8 g/dL (12.0-15.5) Hematocrit 36.9 % (36.0-47.0) Mean Corpuscular Volume 85 fL (79-100) Mean Corpuscular Hemoglobin 27 pg (25-35) Mean Corpuscular Hemoglobin Concent 32 g/dL (31-37) Red Cell Distribution Width 16.4 % (11.5-14.5) Platelet Count 304 x10^3/uL (140-400) Neutrophils (%) (Auto) 70 % (31-73) Lymphocytes (%) (Auto) 21 % (24-48) Monocytes (%) (Auto) 6 % (0-9) Eosinophils (%) (Auto) 3 % (0-3) Basophils (%) (Auto) 1 % (0-3) Neutrophils # (Auto) 6.7 x10^3/uL (1.8-7.7) Lymphocytes # (Auto) 1.9 x10^3/uL (1.0-4.8) Monocytes # (Auto) 0.5 x10^3/uL (0.0-1.1) Eosinophils # (Auto) 0.3 x10^3/uL (0.0-0.7) Basophils # (Auto) 0.1 x10^3/uL (0.0-0.2) Sodium Level 142 mmol/L (136-145) Potassium Level 4.3 mmol/L (3.5-5.1) Chloride Level 103 mmol/L (98-107) Carbon Dioxide Level 33 mmol/L (21-32) Anion Gap 6 (6-14) Blood Urea Nitrogen 10 mg/dL (7-20) Creatinine 0.8 mg/dL (0.6-1.0) Estimated GFR (Cockcroft-Gault) 86.6 Glucose Level 117 mg/dL (70-99) Calcium Level 9.1 mg/dL (8.5-10.1) Laboratory Tests Test 11/06/21 10:30 11/06/21 11:00 POC SARS CoV-2 Antigen Negative (NEGATIVE) White Blood Count 9.5 x10^3/uL (4.0-11.0) Red Blood Count 4.37 x10^6/uL (3.50-5.40) Hemoglobin 11.8 g/dL (12.0-15.5) Hematocrit 36.9 % (36.0-47.0) Mean Corpuscular Volume 85 fL (79-100) Mean Corpuscular Hemoglobin 27 pg (25-35) Mean Corpuscular Hemoglobin Concent 32 g/dL (31-37) Red Cell Distribution Width 16.4 % (11.5-14.5) Platelet Count 304 x10^3/uL (140-400) Neutrophils (%) (Auto) 70 % (31-73) Lymphocytes (%) (Auto) 21 % (24-48) Monocytes (%) (Auto) 6 % (0-9) Eosinophils (%) (Auto) 3 % (0-3) Basophils (%) (Auto) 1 % (0-3) Neutrophils # (Auto) 6.7 x10^3/uL (1.8-7.7) Lymphocytes # (Auto) 1.9 x10^3/uL (1.0-4.8) Monocytes # (Auto) 0.5 x10^3/uL (0.0-1.1) Eosinophils # (Auto) 0.3 x10^3/uL (0.0-0.7) Basophils # (Auto) 0.1 x10^3/uL (0.0-0.2) Sodium Level 142 mmol/L (136-145) Potassium Level 4.3 mmol/L (3.5-5.1) Chloride Level 103 mmol/L (98-107) Carbon Dioxide Level 33 mmol/L (21-32) Anion Gap 6 (6-14) Blood Urea Nitrogen 10 mg/dL (7-20) Creatinine 0.8 mg/dL (0.6-1.0) Estimated GFR (Cockcroft-Gault) 86.6 Glucose Level 117 mg/dL (70-99) Calcium Level 9.1 mg/dL (8.5-10.1) VTE Prophylaxis Ordered VTE Prophylaxis Devices: Yes VTE Pharmacological Prophylaxi: Contraindicated Assessment/Plan Assessment/Plan Right breast mass proven invasive ductal carcinoma plan mastectomy and sentinel lymph node biopsy of the right side Justifications for Admission Other Justification REESE OLVERA MD Nov 06, 2021 11:28
[2021-11-06] MEDS ORDERED: ISOSULFAN BLUE 1% 50 MG/5 ML VIAL. SQ ONE (11:39)
[2021-11-06] MEDS ORDERED: BUPIVACAINE-EPI 0.25% 30 ML VIAL KIT. ONE (11:39)
[2021-11-06] MEDS ORDERED: SUCCINYLCHOLINE 200 MG/10 ML VIAL. ONE (11:59)
[2021-11-06] MEDS ORDERED: PHENYLEPHRINE 10 MG/ML VIAL. ONE ×3 (12:37→13:02)
--- NOTE | 2021-11-06 13:35 | PDOC4 ---
Operative Note Operative Note Date: November 062021 at 1330 Preoperative diagnosis: Breast cancer right breast Postoperative diagnosis: Same Procedure: Right sentinel lymph node biopsy and right mastectomy Surgeon: Fredy Specimen: Right axillary lymph node sentinel lymph node, right breast Anesthesia: General endotracheal Office Machine Inspector: None Dictation: Patient is a 66-year-old female who has a large mass in her right breast biopsy-proven to be a invasive ductal carcinoma. The procedure of mastectomy with sentinel lymph node biopsy was explained to the patient detail was benefits were also discussed occluding bleeding infection alternatives this procedure also discussed with patient who seemed to understand and gave a verbal written consent to have procedure performed. Patient was taken to the operating room placed in the supine position general anesthesia was initiated once patient was sleeping intubated her right chest and axilla were prepped and draped in usual sterile fashion using ChloraPrep. The area was evaluated with the K track and an area was marked in the axilla that showed high activity. Lymphazurin was then injected 4 quadrants around the nipple areolar complex and this was allowed to sit for 10 minutes to percolate the lymphatics. An incision was made over the marked in the right axilla with 10 blade scalpel is carried down through pearson bcutaneous tissue using electrocautery right hemostasis and the deep tissue layers of the right axilla large mass of lymph nodes approximately 3 were in counter these were sent for pathology as the sentinel lymph nodes with a reading of 1974. The axillary wound was packed with a lap sponge tendons were then turned to the mastectomy an elliptical incision around the breast was made with a 10 blade scalpel is carried down through the subcutaneous tissue using electrocautery right hemostasis electrocautery was then used to sharply excise the breast off the pectoralis fascia medially from the sternum superiorly to the clavicle inferiorly the just below the inframammary fold and laterally to the latissimus. This specimen was then marked with a short stitch on the superior border and a long stitch on the medial border. The wound was then irrigated with copious amounts normal saline suctioned dry. A 10 [place] CLEMENTE flat drain was then placed through separate stab incision in the inferior border of the wound was laid in the wound. This was sewn into place with a 3-0 nylon. The wound was then closed in 2 layers a deep layer of single interrupted 3-0 Vicryl's and then the skin was reapproximated for subcuticular Monocryl Mastisol Steri-Strips and island dressings were applied. Patient was awakened and extubated operating room taken to recovery in stable condition all sponge instrument needle counts listed as correct estimated blood loss 30 mL REESE OLVERA MD Nov 06, 2021 13:35
[2021-11-06] MEDS ORDERED: oxyCODONE/APAP 5/325 1 TAB TABLET PO PRN ×2 (13:45)
[2021-11-06] MEDS ORDERED: HYOSCYAMINE 0.125 MG TAB.RAPDIS PO PRN (13:45)
[2021-11-06] MEDS ORDERED: NEOSTIGMINE METHYLSULFATE 5 MG/5 ML SYRINGE. ONE (13:50)
[2021-11-06] MEDS ORDERED: SEVOFLURANE > 120 MINUTES. IH ONE (13:57)
[2021-11-06] MEDS ORDERED: fentaNYL PF VIAL 100 MCG/2 ML VIAL ONE (15:10)
[2021-11-06] MEDS: fentaNYL PF VIAL 100 MCG/2 ML VIAL IVP PRN ×2 (15:12→15:32)
--- NOTE | 2021-11-06 15:46 | RAD ---
Exam performed: [place] lymph node injection . History: Right breast cancer. Date of Service: 11/06/2021. Discussion: Relative benefits risks and alternatives to the procedure were discussed and verbal and written infor med consent was obtained. With sterile technique 1 mCi Lymphoseek radiotracer was injected intradermally in the periareolar reg ion at 10:00 in the right breast. The patient tolerated the procedure well with no immediate complica tions. Impression: Nuclear medicine sentinel lymph node injection for surgery. Electronically signed by: Sadia Yin MD (11/06/2021 3:44 PM) [id number]
[2021-11-06] MEDS: IV RINGERS,LACTATED 1000ML 1,000 ML IV SCH (16:13)
[2021-11-06] MEDS: ONDANSETRON PF 4 MG/2 ML VIAL. IVP PRN (16:21)
[2021-11-06 19:00] VITALS: BP 141/74
[2021-11-06] MEDS: MORPHINE SULFATE 2 MG/ML INJ. IVP PRN (21:16)
[2021-11-06] MEDS: GABAPENTIN 100 MG CAPSULE. PO SCH (21:18)
[2021-11-06] MEDS: FAMOTIDINE 20 MG TABLET. PO SCH (21:18)
[2021-11-06] MEDS: OXYBUTYNIN CHLORIDE 5 MG TABLET PO SCH (21:18)
--- NOTE | 2021-11-06 21:30 | NUR ---
CALLED TO SET UP HOME BIPAP MACHINE. PT HAS A TRILOGY WITH [facility] SETTINGS. WATER PLACED IN THER WATER RESERVOIR OF HEATED HUMIDIFIER. RN GIVEN INSTRUCTIONS ON HOW TO REMOVE AND PLACE PATIENT ON TRILOGY AND ALSO EXPLAINED HOW TO TROUBLESHOOT A FEW COMMON PROBLEMS.
[2021-11-06 23:00] VITALS: BP 146/68
[2021-11-07] MEDS: MORPHINE SULFATE 2 MG/ML INJ. IVP PRN (02:29)
[2021-11-07 02:46] VITALS: BP 134/58
[2021-11-07] MEDS: IV RINGERS,LACTATED 1000ML 1,000 ML IV SCH (05:30)
[2021-11-07 07:00] VITALS: BP 128/102
[2021-11-07] MEDS: GABAPENTIN 100 MG CAPSULE. PO SCH ×2 (08:47→13:09)
[2021-11-07] MEDS: OXYBUTYNIN CHLORIDE 5 MG TABLET PO SCH ×2 (08:47→13:09)
[2021-11-07] MEDS: FAMOTIDINE 20 MG TABLET. PO SCH (08:47)
[2021-11-07] MEDS ORDERED: POLYETHYLENE GLYCOL 3350 17 GM PACKET. PO SCH (09:00)
--- NOTE | 2021-11-07 10:28 | NUR ---
JOEY following. Discussed with RN. 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 Pt had surgery 11/06/21. PT/OT ordered. JOEY will continue to follow. Addendum: 11/07/21 at 1302 by PRINCESS COOK Discharge orders faxed to [facility]. [facility] arranged stretcher transportation for 1330. RN notified.
--- NOTE | 2021-11-07 10:50 | PDOC ---
SURGICAL PROGRESS NOTE DATE: 11/07/21 TIME: 10:48 Subjective doing ok some pain tolerating diet Vital Signs Vital Signs Date Time Temp Pulse Resp B/P (MAP) Pulse Ox O2 Delivery O2 Flow Rate FiO2 11/07/21 08:05 Nasal Cannula 2.0 11/07/21 07:00 97.8 73 19 128/102 (111) 98 97.8 I&O Intake and Output 11/07/21 07:00 Intake Total 2320 ml Output Total 1200 ml Balance 1120 ml Intake Oral 120 ml IV Total 2200 ml Output Urine Total 1150 ml Drainage Total 20 ml Estimated Blood Loss 30 ml General: Alert, Cooperative Skin: Other (dressing intact, drain in place) Labs Laboratory Tests Test 11/06/21 10:30 11/06/21 11:00 POC SARS CoV-2 Antigen Negative (NEGATIVE) White Blood Count 9.5 x10^3/uL (4.0-11.0) Red Blood Count 4.37 x10^6/uL (3.50-5.40) Hemoglobin 11.8 g/dL (12.0-15.5) Hematocrit 36.9 % (36.0-47.0) Mean Corpuscular Volume 85 fL (79-100) Mean Corpuscular Hemoglobin 27 pg (25-35) Mean Corpuscular Hemoglobin Concent 32 g/dL (31-37) Red Cell Distribution Width 16.4 % (11.5-14.5) Platelet Count 304 x10^3/uL (140-400) Neutrophils (%) (Auto) 70 % (31-73) Lymphocytes (%) (Auto) 21 % (24-48) Monocytes (%) (Auto) 6 % (0-9) Eosinophils (%) (Auto) 3 % (0-3) Basophils (%) (Auto) 1 % (0-3) Neutrophils # (Auto) 6.7 x10^3/uL (1.8-7.7) Lymphocytes # (Auto) 1.9 x10^3/uL (1.0-4.8) Monocytes # (Auto) 0.5 x10^3/uL (0.0-1.1) Eosinophils # (Auto) 0.3 x10^3/uL (0.0-0.7) Basophils # (Auto) 0.1 x10^3/uL (0.0-0.2) Sodium Level 142 mmol/L (136-145) Potassium Level 4.3 mmol/L (3.5-5.1) Chloride Level 103 mmol/L (98-107) Carbon Dioxide Level 33 mmol/L (21-32) Anion Gap 6 (6-14) Blood Urea Nitrogen 10 mg/dL (7-20) Creatinine 0.8 mg/dL (0.6-1.0) Estimated GFR (Cockcroft-Gault) 86.6 Glucose Level 117 mg/dL (70-99) Calcium Level 9.1 mg/dL (8.5-10.1) Laboratory Tests Test 11/06/21 11:00 White Blood Count 9.5 x10^3/uL (4.0-11.0) Red Blood Count 4.37 x10^6/uL (3.50-5.40) Hemoglobin 11.8 g/dL (12.0-15.5) Hematocrit 36.9 % (36.0-47.0) Mean Corpuscular Volume 85 fL (79-100) Mean Corpuscular Hemoglobin 27 pg (25-35) Mean Corpuscular Hemoglobin Concent 32 g/dL (31-37) Red Cell Distribution Width 16.4 % (11.5-14.5) Platelet Count 304 x10^3/uL (140-400) Neutrophils (%) (Auto) 70 % (31-73) Lymphocytes (%) (Auto) 21 % (24-48) Monocytes (%) (Auto) 6 % (0-9) Eosinophils (%) (Auto) 3 % (0-3) Basophils (%) (Auto) 1 % (0-3) Neutrophils # (Auto) 6.7 x10^3/uL (1.8-7.7) Lymphocytes # (Auto) 1.9 x10^3/uL (1.0-4.8) Monocytes # (Auto) 0.5 x10^3/uL (0.0-1.1) Eosinophils # (Auto) 0.3 x10^3/uL (0.0-0.7) Basophils # (Auto) 0.1 x10^3/uL (0.0-0.2) Sodium Level 142 mmol/L (136-145) Potassium Level 4.3 mmol/L (3.5-5.1) Chloride Level 103 mmol/L (98-107) Carbon Dioxide Level 33 mmol/L (21-32) Anion Gap 6 (6-14) Blood Urea Nitrogen 10 mg/dL (7-20) Creatinine 0.8 mg/dL (0.6-1.0) Estimated GFR (Cockcroft-Gault) 86.6 Glucose Level 117 mg/dL (70-99) Calcium Level 9.1 mg/dL (8.5-10.1) Problem List s/p mastectomy can return to shelter care appt next wednesday for drain removal Justicifation of Admission Dx: Justifications for Admission: Justification of Admission Dx: Yes SHANT PIRES APRN Nov 07, 2021 10:50
[2021-11-07] MEDS ORDERED: OXYC1TAB15 PO (10:53)
--- NOTE | 2021-11-07 10:57 | SNU/HH DC ---
DISCHARGE ORDERS DISCHARGE INFORMATION: DISCHARGE DATE: Nov 07, 2021 CONDITION ON DISCHARGE: Stable PENITENTIARY: SNF STAY <30 DAYS: No HOSPICE: HOSPICE: No HOSPICE EVAL & TREAT: No LTAC: ADMIT TO LTAC: No POST DISCHARGE ORDERS: ACTIVITY ORDERS: Activity as tolerated WEIGHT BEARING STATUS: Other, see below (wound care daily, will need drain emptied BID and recorded, please bring to appt ) BATHING ORDERS: Shower-keep dressing dry DIET AFTER DISCHARGE: Regular WOUND/INCISION CARE: Keep wound/cast CDI, Change dressing FOLLOW-UP: PHYSICIAN FOLLOW-UP: Shant P[facility] [place] [facility] surgery 11/14 at 245, questions call [phone] TREATMENT/EQUIPMENT ORDERS: RESPIRATORY EQUIPMENT NEEDED: Oxygen Physical Therapy For: Evalulation/Treatment Occupational Therapy For: Evaluation/Treatment DISCHARGE MEDICATIONS: Home Meds Active Scripts Oxycodone/Apap 5-325 (PERCOCET 5-325 MG TABLET ) 1 Each Tablet, 1 TAB PO PRN Q4HRS PRN for MILD PAIN 1-3, #15 TAB Prov:SHANT PIRES CUSTOMS APPRAISER 11/07/21 Reported Medications Tramadol Hcl (TRAMADOL HCL) 50 Mg Tablet, 50 MG PO Q6HRS PRN for PAIN, TAB 11/05/21 Potassium Citrate (POTASSIUM CITRATE ER) 15 Meq Tablet.er, 20 MEQ PO DAILY for DAILY, TAB.SR 11/05/21 Ferrous Sulfate (FERROUS SULFATE) 325 Mg Tablet, 325 MG PO BID for IRON SUPP LEMENT , TAB 11/05/21 Petrolatum,White/Lanolin (VITAMIN A & D OINTMENT) 113 Gm Oint...g., 113 GM TP DAILY for , MISC 07/29/20 Guaifenesin/Dextromethorphan (GUAIFENESIN DM SYRUP) 5 Ml Syrup, 10 ML PO PRN Q4HRS PRN for COUGH, LIQUID 07/29/20 Methenamine Hippurate (HIPREX) 1 Gm Tablet, 1 TAB PO DAILY for UTI for 30 Days, #30 TAB 0 Refills 07/29/20 Hydralazine Hcl (HYDRALAZINE HCL) 25 Mg Tablet, 1 TAB PO TID for hypertension, #90 TAB 5 Refills 04/09/20 Fluticasone Propionate (FLUTICASONE PROPIONATE NASAL SPRAY) 16 Gm [place].susp, 2 SPRAY NS DAILY PRN for ALLERGIES, #1 INHALER 5 Refills 04/09/20 Diclofenac Sodium (VOLTAREN) 100 Gm Gel..gram., 2 GM TP PRN Q4HRS PRN for PAIN for 30 Days, #100 GM 0 Refills apply to shoulders as needed for pain 04/09/20 Cetirizine Hcl (CETIRIZINE HCL) 10 Mg Tablet, 1 TAB PO DAILY for allergies/itching, #30 TAB 2 Refills 04/09/20 Hyoscyamine Sulfate (ANASPAZ) 0.125 Mg Tab.rapdis, 0.125 MG PO/SL PRN Q4HRS PRN for BLADDER SPASM, TAB 03/14/19 Tamsulosin Hcl (FLOMAX) 0.4 Mg Cap.er.24h, 1 CAP PO BID for , #30 CAP 11 Refills 03/14/19 Polyvinyl Alcohol (POLYVINYL ALCOHOL) 15 Ml Drops, 15 ML OP PRN TID PRN for DRY EYE, DROP 03/14/19 Citalopram Hydrobromide (CELEXA) 10 Mg Tablet, 2 TAB PO DAILY for depression, #30 TAB 2 Refills 03/14/19 Magnesium Hydroxide (MILK OF MAGNESIA) 400 Mg/5 Ml Oral.susp, 400 MG PO PRN DAILY PRN for CONSTIPATION, MISC 03/14/19 Famotidine (FAMOTIDINE) 20 Mg Tablet, 20 MG PO PRN DAILY PRN for , TAB 11/25/17 Hydrocortisone/Aloe Vera (HYDROCORTISONE PLUS 1% CREAM) 28.4 Gm Cream..g., 28.4 GM TP PRN QID PRN for RASH, EACH 02/23/17 Aspirin (ASPIR 81) 81 Mg Tablet.dr, 1 TAB PO DAILY, TAB 02/23/17 Atorvastatin Calcium (ATORVASTATIN CALCIUM) 10 Mg Tablet, 10 MG PO HS for , TAB 02/23/17 Oxybutynin Chloride (OXYBUTYNIN CHLORIDE) 5 Mg Tablet, 5 MG PO TID, TAB 09/07/15 Acetaminophen (ACETAMINOPHEN) 500 Mg Tablet, 500 MG PO Q6HRS PRN for MILD PAIN / TEMP 08/16/15 Multivitamin (MULTIVITAMINS) 1 Each Tablet, 1 TAB PO DAILY, #30 TAB 2 Refills 08/16/15 Bisacodyl (BISACODYL) 10 Mg Supp.rect, 10 MG RC PRN DAILY PRN for CONSTIPATION, SUPP.RECT 0 Refills 08/16/15 Cyanocobalamin (Vitamin B-12) (B-12) 500 Mcg Tablet, 500 MCG PO DAILY 08/16/15 Polyethylene Glycol 3350 (MIRALAX) 17 Gm Powd.pack, 1 PACKET PO DAILY, #30 PACKET 3 Refills 02/11/15 Simethicone (SIMETHICONE) 80 Mg Tab.chew, 160 MG PO Q6HRS PRN for GAS / BLOATING, TAB.CHEW 02/11/15 Gabapentin (GABAPENTIN ) 300 Mg Capsule, 300 MG PO TID, #90 CAP 5 Refills 02/11/15 SHANT PIRES APRN Nov 07, 2021 10:57
[2021-11-07 11:00] VITALS: BP 120/53
[2021-11-07] MEDS: ONDANSETRON PF 4 MG/2 ML VIAL. IVP PRN (13:07)
--- NOTE | 2021-11-07 14:00 | NUR ---
Patient discharge back to [facility] today, via stretcher, accompanied by ambulance personals. Patient is stable, yellow packet given to ambulance personal, IV removed, but go back with CLEMENTE drain with instruction in placed. Nursing report was call to [facility] and the nursing taking report was Dianna DE LA ROSA.
--- NOTE | 2021-11-11 12:08 | PATHOLOGY ---
[facility] Accession Number: [id number] . 01 Material submitted: . PART A: breast - RIGHT SENTINEL NODE. Modifiers: right, LYMPH NODE PART B: breast - RIGHT BREAST SHORT STITCH - SUPERIOR, LONG STITCH - MEDIAL. Modifiers: right PART C: axillary tail of breast - RIGHT AXILLARY LYMPH NODES. Modifiers: right, LYMPH NODES . 01 Clinician provided ICD-10: C50.911 . 01 Clinical history: . RIGHT BREAST CANCER RIGHT BREAST MASTECTOMY OBTAINED: 1245 FORMALIN: 1246 . 02 Diagnosis: A. Lymph node, right sentinel lymph node biopsy: - Reactive changes, negative for tumor (0/1). . B. Breast, right mastectomy: - INVASIVE DUCTAL CARCINOMA, HIGH-GRADE (GRADE 3/3), FORMING A FAIRLY WELL CIRCUMSCRIBED MASS SHOWING EXTENSIVE NECROSIS OF THE LOWER OUTER QUADRANT, MEASURING 4.7 CM IN GREATEST DIMENSION. - DUCTAL CARCINOMA IN SITU, HIGH-GRADE, COMEDO AND SOLID TYPE, FOCAL. - INVASIVE CARCINOMA IS APPROXIMATELY 4.0 CM FROM THE CLOSEST (INFERIOR/ANTERIOR) MARGIN OF RESECTION. - No lymphovascular tumor invasion identified. - Stromal fibrosis, duct ectasia, cystic change, and chronic inflammation of breast tissue adjacent to tumor. - Hemangioma and seborrheic keratoses of skin of breast. . C. Lymph node and adipose tissue, right axillary lymph nodes: - Single lymph node showing reactive changes, negative for tumor (0/1). (JPM/db; 11/10/2021) . . CASE SUMMARY: (INVASIVE CARCINOMA OF THE BREAST: Resection) Standards: AJCC-UICC 8 . SPECIMEN . Procedure ___ Total mastectomy (including nipple-sparing and skin-sparing mastectomy) . Specimen Laterality ___ Right . TUMOR . +Tumor Site ___ Lower outer quadrant . Histologic Type ___ Invasive carcinoma of no special type (ductal) . Histologic Grade ([place] Histologic Score) Glandular (Acinar) / Tubular Differentiation ___ Score 3 (less than 10% of tumor area forming glandular / tubular structures) Nuclear Pleomorphism ___ Score 3 (Vesicular nuclei, often with prominent nucleoli, exhibiting marked variation in size and shape, occasionally with very large and bizarre forms) Mitotic Rate ___ Score 3 . Overall Grade ___ Grade 3 (scores of 8 or 9) . Tumor Size ___ Greatest dimension of largest invasive focus greater than 1 mm: 47 mm . +Tumor Focality ___ Single focus of invasive carcinoma . Ductal Carcinoma In Situ (DCIS) ___ Present ___ Negative for extensive intraductal component . Size (Extent) of DCIS +Number of Blocks with DCIS: 1 . +Architectural Patterns ___ Comedo ___ Solid +Nuclear Grade ___ Grade III (high) +Necrosis ___ Present, central (expansive "comedo" necrosis) . +Lobular Carcinoma In Situ (LCIS) ___ Not identified . Tumor Extension Skin ___ Skin is present and uninvolved Nipple ___ DCIS does not involve the nipple epidermis Skeletal Muscle ___ No skeletal muscle is present . +Lymphovascular Invasion ___ Not identified . +Dermal Lymphovascular Invasion ___ Not identified . +Microcalcifications ___ Not identified . MARGINS . Invasive Carcinoma Margins ___ Uninvolved by invasive carcinoma Distance from Invasive Carcinoma to Closest Margin ___ Exact distance: 40 mm +Specify Closest Margin ___ Inferior/Anterior Margin . DCIS Margins ___ Uninvolved by DCIS . REGIONAL LYMPH NODES . Regional Lymph Node Status ___ Uninvolved by tumor cells Total Number of Lymph Nodes Examined: 2 Number of sentinel nodes examined: 1 PATHOLOGIC STAGE CLASSIFICATION (pTNM, AJCC 8th Edition) . Primary Tumor (pT) ___ pT2: Tumor greater than 20 mm but less than or equal to 50 mm in greatest dimension . Regional Lymph Nodes (pN) ___ pN0: No regional lymph node metastasis . ADDITIONAL FINDINGS . Additional Pathologic Findings ___ See diagnoses (JPM/db; 11/11/2021) QMS 11/11/2021 1123 Local . 02 Comment: The sentinel lymph node is examined at multiple levels. Immunoperoxidase stains for AE1/AE3 are also obtained on the sentinel lymph node and yield the following results: . AE1/AE3 (A1): Negative for tumor AE1/AE3 (A2): Negative for tumor . Sections of the right axillary lymph nodes reveal a single enlarged lymph node. Properly controlled immunoperoxidase stains for AE1/AE3 are obtained on this lymph node and yield the following results: . AE1/AE3 (C1): Negative for tumor AE1/AE3 (C2): Negative for tumor AE1/AE3 (C3): Negative for tumor . Thus, there are a total of two axillary lymph nodes, both of which are negative for tumor. . Sections of the right mastectomy reveal an invasive high-grade ductal carcinoma. The tumor cells are present in small and large solid nests, and sheets and show extensive areas of tumor necrosis. Tumor cells show marked nuclear pleomorphism. There is prominent mitotic activity with presence of atypical mitotic figures. There is no lymphovascular tumor invasion. There are a few foci about the periphery of the tumor suspicious for high-grade ductal carcinoma in situ. Immunoperoxidase stains for p63 are obtained and yield the following results: . p63 (B11): Absence of myoepithelial cells in suspected focus of DCIS, consistent with invasive carcinoma. . p63 (B13): Focal presence of myoepithelial cells about periphery of nests of tumor cells consistent with high grade ductal carcinoma in situ of comedo and solid type. Thus, there is a rare focus of high grade ductal carcinoma in situ. (JPM/db; 11/11/2021) . . Immunoperoxidase stains performed: AE1/AE3 on A1, A2, C1, C2 and C3 and p63 on B11 and B13 . 02 Electronically signed: . Francis Sheth MD, Pathologist NPI- [id number] . 01 Gross description: . A. The specimen is received in formalin, labeled "Susan Valada, right sentinel node". Received is a single, unoriented, vaguely ovoid, murdock-yellow to pink, lobulated, piece of fibroadipose tissue, measuring 3.4 x 3.0 x 1.7 cm. Dissection of the adipose tissue yields a single, ovoid, murdock-pink, candidate lymph node, measuring 2.0 x 1.5 x 0.9 cm. The specimen is serially sectioned, perpendicular to the long axis, to reveal murdock-pink to red, solid, glistening cut surfaces. The candidate lymph node is entirely submitted in cassettes A1-A2. . B. The specimen is received in formalin, labeled "Susan Lyons, right breast, long stitch-medial, short stitch-superior". Received is a previously oriented, right simple mastectomy specimen, measuring 28.5 cm from medial to lateral, 17.9 cm from superior to inferior, 7.8 cm from anterior to posterior. The 27.6 x 17.0 cm skin ellipse, appears murdock-pink, and displays multiple areas of pigmentation consistent with "age spots", located in the inferior aspect of the specimen, up to 1.2 cm from the closest skin margin, and ranging in size from 0.2-0.6 cm, in greatest dimension. The skin ellipse displays an eccentrically located, murdock-brown, wrinkled, ill-defined, areola, measuring approximately 9.5 x 7.0 cm. The areola displays a 6.0 x 4.0 cm area of prominent, slightly indurated, wrinkling, involving the everted murdock-brown nipple (2.0 x 1.6 x 0.6 cm). The specimen oriented as follows: a short double stitch designates the superior aspect, and a long double stitch designates the medial aspect. The specimen is differentially inked as follows: . Blue = superior/anterior margin Green = inferior/anterior margin Black = deep margin . The specimen is serially sectioned to reveal a single, ovoid, well demarcated, diffusely hemorrhagic, murdock-white to red, variegated, softened, friable, necrotic- appearing, glistening, mass, measuring 4.0 cm from superior to inferior, 4.2 cm from anterior to posterior, and 4.7 cm from medial to lateral. The mass is located in the lower outer quadrant (7:00-8:00 region), 5.5 centimeters from the closest deep margin, 6.5 from the closest superior/anterior margin, 4.0 cm from the closest inferior/anterior margin, 1.0 cm from the skin surface and approximately 6.0 cm from the nipple. A biopsy clip is not grossly identified. The remaining uninvolved breast tissue is comprised of 95% yellow lobulated adipose tissue and 5% white fibrous tissue. Photographs are obtained. Testing And Regulating Technician sections are submitted as follows: . B1-B2: Testing And Regulating Technician areas of increased skin pigmentation B3-B4: Entire nipple, serially sectioned B5-B6: Testing And Regulating Technician sections of prominent indurated wrinkling B7-B16: Mass, represented (B7-B10: Mass-full face from superior to inferior and anterior to posterior B15-B16: Mass to include closest skin surface) B17-B18: Closest inferior/anterior margin B19-B20: Closest deep margin B21-B22: Closest superior/anterior B23: Upper inner quadrant fibrous tissue B24: Lower inner quadrant fibrous tissue B25: Upper outer quadrant fibrous tissue B26: Lower outer quadrant fibrous tissue . The specimen is removed from the patient at 1245 and placed in formalin at 1246 on 11/06/2021. The specimen is removed from formalin at 2140 on 11/07/2021. The specimen is in formalin for greater than 6 hours and less than 72 hours. . C. The specimen is received in formalin, labeled "Susan Valada, right axillary lymph nodes". Received is a single, unoriented, irregularly-shaped, murdock-yellow to pink, lobulated, piece of fibroadipose tissue, measuring 4.0 x 3.4 x 2.0 cm. Dissection of the adipose tissue yields a single, irregularly-shaped, multilobulated, murdock-pink, candidate lymph node, measuring 3.0 x 2.0 x 1.4 cm. The specimen is serially sectioned to reveal a murdock-pink to red, solid and glistening cut surface. The specimen is entirely submitted as follows: C1-C3: Candidate lymph node serially sectioned C4-C6: Remaining adipose tissue (JGG; 11/07/2021) JGG/JGG 11/10/2021 1741 Local . 02 Pathologist provided ICD-10: C50.911, N60.31, N60.41, N61.0, D18.01, L82.1 . 02 CPT . 908535, [id number], [id number] Specimen Comment: A courtesy copy of this report has been sent to [phone], [phone] Specimen Comment: [id number] Specimen Comment: Report sent to / DR HANSON Performed at: [address] [place] [address] [address], [place] [id number] MD Andre Saravia MD Phone: [phone] Performed at: [address] [id number] MD Francis Sheth MD Phone: [phone]
== END 2021-11-07 14:09 ==
LOC: SURG 10:13 → 4 NORTH 14:37
PROVIDERS: ADMIT Surgery; ATTEND Surgery
DX: C50.911 Malignant neoplasm of unspecified site of right female breast (principal); Z20.822 Contact with and (suspected) exposure to COVID-19; I10 Essential (primary) hypertension; E78.5 Hyperlipidemia, unspecified; I63.9 Cerebral infarction, unspecified; J44.9 Chronic obstructive pulmonary disease, unspecified; K21.9 Gastro-esophageal reflux disease without esophagitis; E66.01 Morbid (severe) obesity due to excess calories; M19.90 Unspecified osteoarthritis, unspecified site; N39.0 Urinary tract infection, site not specified; R32 Unspecified urinary incontinence; Z86.73 Personal history of transient ischemic attack (TIA), and cerebral infarction without residual deficits; Z99.3 Dependence on wheelchair; Z98.891 History of uterine scar from previous surgery; Z79.82 Long term (current) use of aspirin; Z68.42 Body mass index [BMI] 45.0-49.9, adult
CPT/HCPCS: 19303; 36415; 38525; 38792; 80048; 85025; 96374; 96375; 96376; A4209; A4930; A6402; A9520; G0378; G0379; J0330; J0780; J1100; J1170; J1885; J1956; J2270; J2370; J2405; J2704; J2710; J3010; J3490; J7120; Q9968; A4223

== ENCOUNTER → 2021-12-09 | Outpatient (CLI) | payer OTHER, MEDICARE ==
[~2021-12-09] MED LIST changes: -ACETAMINOPHEN 500 MG TABLET PO PRN; -HYDROmorphone 2 MG/ML INJ. IVP PRN; -IV RINGERS,LACTATED 1000ML 1,000 ML IV SCH; -MORPHINE SULFATE 2 MG/ML INJ. IVP PRN; -PROCHLORPERAZINE 10 MG/2 ML VIAL. IVP PRN; -fentaNYL PF VIAL 100 MCG/2 ML VIAL IVP PRN
[2021-12-09 15:07] LABS: BASO # 0.1 x10^3/uL (0.0-0.2); BASO % 2 % (0-3); EOS # 0.2 x10^3/uL (0.0-0.7); EOS % 3 % (0-3); HEMATOCRIT 37.3 % (36.0-47.0); HEMOGLOBIN 11.7 g/dL (12.0-15.5); LYMPH # 2.4 x10^3/uL (1.0-4.8); LYMPH % 27 % (24-48); MEAN CORPUSCULAR HEMOGLOBIN 26 pg (25-35); MEAN CORPUSCULAR HGB CONC 31 g/dL (31-37); MEAN CORPUSCULAR VOLUME 84 fL (79-100); MONO # 0.6 x10^3/uL (0.0-1.1); MONO % 7 % (0-9); NEUT # 5.5 x10^3/uL (1.8-7.7); NEUT % 62 % (31-73); PLATELET COUNT 298 x10^3/uL (140-400); RED BLOOD COUNT 4.44 x10^6/uL (3.50-5.40); RED CELL DISTRIBUTION WIDTH 16.1 % (11.5-14.5)
[2021-12-09 15:18] LABS: CALCIUM 9.6 mg/dL (8.5-10.1); CREATININE 0.9 mg/dL (0.6-1.0); GFR 75.6; POTASSIUM 4.2 mmol/L (3.5-5.1)
[2021-12-09 15:25] LABS: ALBUMIN/GLOBULIN RATIO 0.6 (1.0-1.7); TOTAL BILIRUBIN 0.2 mg/dL (0.2-1.0); TOTAL PROTEIN 7.7 g/dL (6.4-8.2)
== END ==
LOC: ONCLAB 14:37
PROVIDERS: ATTEND Internal Medicine Hematology & Oncology
DX: C50.911 Malignant neoplasm of unspecified site of right female breast (principal)
CPT/HCPCS: 36415; 80053; 85025

== ENCOUNTER 2022-01-23 08:47 | Outpatient (CLI) | payer OTHER ==
[~2022-01-23] VITALS: Ht 165.1 cm; Wt 120.5 kg
[~2022-01-23 08:47] MED LIST changes: -BENZ1LOZ48 MM; +BENZ1LOZ61 MM; +BISA10SU55 RC; +CITA20TA9 PO; +FAMO-63 PO; +HYDR25TA PO; +PEG15DRO14 EACHEYE; +POTA20TA4 PO; +PREG150C PO; +PREPARATION H RC; +VITS42.55 TP; +magnesium citrate PO
[2022-01-23 10:09] VITALS: BP 150/81
[2022-01-23] MEDS ORDERED: TIZA4TAB8 PO (10:31)
[2022-01-23] MEDS ORDERED: DULO30CA2 PO (10:31)
[2022-01-23] MEDS ORDERED: LIDO30CR2 TP (10:31)
[2022-01-23] MEDS ORDERED: TAMS0.4C97 PO (10:31)
[2022-01-23] MEDS ORDERED: METH1TAB54 PO (10:31)
[2022-01-23] MEDS ORDERED: AMLO10TA4 PO (10:31)
[2022-01-23] MEDS ORDERED: HYDR25SU18 RC (10:31)
[2022-01-23] MEDS ORDERED: [UNRECOGNIZED DRUG - CODE] PO (10:31)
[2022-01-23 11:13] LABS: PROTHROMBIN TIME PATIENT 13.2 SEC (11.7-14.0)
[2022-01-23] MEDS ORDERED: LIDOCAINE 1%/EPI 1:100,000 20 ML VIAL. ONE (11:26)
[2022-01-23] MEDS ORDERED: fentaNYL PF VIAL 100 MCG/2 ML VIAL ONE (11:28)
[2022-01-23] MEDS ORDERED: MIDAZOLAM HCL/PF 2 MG/2 ML VIAL. ONE (11:28)
[2022-01-23] MEDS ORDERED: fentaNYL PF VIAL 100 MCG/2 ML VIAL IV ONE (11:30)
[2022-01-23] MEDS ORDERED: MIDAZOLAM HCL/PF 2 MG/2 ML VIAL. IV ONE (11:30)
[2022-01-23] MEDS ORDERED: LIDOCAINE 1%/EPI 1:100,000 20 ML VIAL. INJ ONE (11:30)
[2022-01-23] MEDS ORDERED: HEPARIN PF 500 UNIT/5 ML DISP.SYRIN. IVP ONE ×3 (11:36→12:00)
[2022-01-23] MEDS ORDERED: VANCOMYCIN 1 GM in IV NORMAL SALINE 250ML 250 ML IV ONE (11:45)
[2022-01-23 12:30] VITALS: BP 126/69
[2022-01-23 12:45] VITALS: BP 122/62
[2022-01-23 13:00] VITALS: BP 133/56
[2022-01-23 13:15] VITALS: BP 127/62
[2022-01-23 13:30] VITALS: BP 139/67
--- NOTE | 2022-01-23 13:58 | NUR ---
Patient d/c. Taken to [facility] transport van via wheelchair. On 4L NC, VS stable. 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 Comfortable once in wheelchair. Notified nurse in report. No bleeding at Port site. Bandage intact. PIV removed. Glasses taken with patient. Report called to Darleen at [facility].
--- NOTE | 2022-02-04 15:43 | RAD ---
PROCEDURE: Infusion port placement with ultrasound and fluoroscopy guidance.(11583, [id number], [id number]) Moderate sedation (add CPT) INDICATION: 66 years Female with breast cancer diagnoses, needing chemotherapy via central venous a ccess. Flouroscopy-Radiation exposure: Kerma Air Product (in mGycm2): 1 Contrast: None. SEDATION: Under physician supervision, Versed and fentanyl were administered intravenously for moder ate sedation. Pulse oximetry, heart rate, and BP were continuously monitored by a dedicated qualifie d nurse. The physician spent 31 minutes of [id number] sedation time with the patient. Current history and physical and other medical records are reviewed prior to the procedure. PROCEDURE: After maximal sterile barrier technique preparation and draping, 1% lidocaine was utilized for local anesthesia. Ultrasound examination of the left internal jugular vein was performed and demonstrates patency of t he vessel. This is deemed suitable for access. Ultrasound guidance is utilized for access into this vessel and corresponding ultrasound image was saved in the record. This was performed utilizing a m icropuncture kit with a micropuncture sheath advanced into the SVC. A pocket site at the right chest wall is is infiltrated with local anesthesia . Then a 4 cm transvers e skin incision was made and subcutaneous pocket created with blunt dissection to accommodate the por t reservoir. The pocket was copiously irrigated and hemostasis obtained. After additional local anesthesia, tunnel ing of the port catheter is performed into the venous puncture site. Then over a guidewire an introducer sheath was placed into the superior vena cava. The port catheter was then advanced through the peel-away sheath, positioned under fluoroscopy with the distal tip in the cavoatrial junction. At this point the port fixed into the reservoir was flushed with saline and demonstrated adequate dia w and packed with Hep-Lock solution. The subcutaneous pocket was then closed 3.0 Vicryl absorbable pearson ture. Sterile dressing was applied. No immediate complications. IMPRESSION: Successful left IJV infusion Power port placement. Electronically signed by: Leonides Valle MD (02/04/2022 8:38 AM) [id number]
== END 2022-01-23 13:45 | disposition home or self-care (01) ==
LOC: INTRAD 08:47
PROVIDERS: ATTEND Physician Assistant
DX: Z45.2 Encounter for adjustment and management of vascular access device (principal); C50.911 Malignant neoplasm of unspecified site of right female breast; I10 Essential (primary) hypertension; J44.9 Chronic obstructive pulmonary disease, unspecified; G47.30 Sleep apnea, unspecified; F31.9 Bipolar disorder, unspecified; M19.90 Unspecified osteoarthritis, unspecified site; K21.9 Gastro-esophageal reflux disease without esophagitis; Z98.890 Other specified postprocedural states; Z87.442 Personal history of urinary calculi; Z86.73 Personal history of transient ischemic attack (TIA), and cerebral infarction without residual deficits
CPT/HCPCS: 36415; 36561; 76937; 77001; 85610; 99152; 99153; C1788; C1892; J1642; J2250; J3010; J3370; J3490; J7050; J7030

== ENCOUNTER → 2022-01-28 | Outpatient (CLI) | payer OTHER ==
[2022-01-23 13:30] VITALS: BP 139/67
[~2022-01-28] MED LIST changes: +DULO30CA2 PO; +HYDR25SU18 RC; +LIDO30CR2 TP; +TIZA4TAB8 PO; +[UNRECOGNIZED DRUG - CODE] PO
[2022-01-28 09:28] LABS: BASO % 1 % (0-3); EOS # 0.2 x10^3/uL (0.0-0.7); EOS % 2 % (0-3); HEMATOCRIT 34.5 % (36.0-47.0); HEMOGLOBIN 11.2 g/dL (12.0-15.5); LYMPH # 1.3 x10^3/uL (1.0-4.8); LYMPH % 13 % (24-48); MEAN CORPUSCULAR HEMOGLOBIN 27 pg (25-35); MEAN CORPUSCULAR HGB CONC 32 g/dL (31-37); MEAN CORPUSCULAR VOLUME 85 fL (79-100); MONO # 0.6 x10^3/uL (0.0-1.1); MONO % 6 % (0-9); NEUT # 7.8 x10^3/uL (1.8-7.7); NEUT % 78 % (31-73); PLATELET COUNT 250 x10^3/uL (140-400); RED BLOOD COUNT 4.07 x10^6/uL (3.50-5.40); RED CELL DISTRIBUTION WIDTH 16.2 % (11.5-14.5)
[2022-01-28 09:51] LABS: CALCIUM 9.9 mg/dL (8.5-10.1); CREATININE 0.8 mg/dL (0.6-1.0); GFR 86.6; POTASSIUM 4.2 mmol/L (3.5-5.1)
[2022-01-28 09:57] LABS: ALBUMIN 2.6 g/dL (3.4-5.0); ALBUMIN/GLOBULIN RATIO 0.6 (1.0-1.7); TOTAL BILIRUBIN 0.3 mg/dL (0.2-1.0)
== END ==
LOC: ONCLAB 09:05
PROVIDERS: ATTEND Physician Assistant
DX: C50.911 Malignant neoplasm of unspecified site of right female breast (principal)
CPT/HCPCS: 36415; 80053; 83615; 85025